=== PATIENT | female | born 1985 | race Caucasian/White ===

== ENCOUNTER 2017-07-25 19:22 | Emergency (ER) | payer MEDICAID, OTHER ==
[2017-07-25] MEDS ORDERED: Ativan 2 MG/1 ML VIAL IV ONE (19:50)
[2017-07-25] MEDS ORDERED: BABY ASPIRIN 81 MG CHEW PO ONE (19:50)
[2017-07-25] MEDS ORDERED: BABY ASPIRIN 81 MG CHEW ONE (19:59)
[2017-07-25] MEDS ORDERED: Ativan 2 MG/1 ML VIAL ONE (20:00)
--- NOTE | 2017-07-25 20:08 | ERPHSYRPT ---
- History of Present Illness Time Seen by Provider: 07/25/17 19:45 Historian: patient Exam Limitations: no limitations Patient Subjective Stated Complaint: Chest Pain Triage Nursing Assessment: Pt presents to the ED with complaints of chest pain x1 week. Pt states no new or worsening symptoms since onset but states "I feel I 'm doing worse damage by not getting it checked." Pt denies trauma to chest, drug or alcohol use. Pt denies other complaints, pt denies radiation of pain. A& O x4. Physician History: Pt has been c/o constant sternal chest pressure for 5 days, denies injury, no productive cough, vomiting, or fever, other complaints. She smokes, denies cardiac history or significant family history of heart disease. Timing/Duration: day(s) (5), constant, gradual onset Activities at Onset: none Quality: pressure Location: central Chest Pain Radiation: no radiation Severity of Pain-Max: severe Severity of Pain-Current: severe Modifying Factors: Improves With: nothing Associated Symptoms: nausea Nitro Today/Relief: no nitro taken today Aspirin Treatment Today: no aspirin today Allergies/Adverse Reactions: No Known Drug Allergies Allergy (Unverified 11/15/15 10:17) Home Medications: Alprazolam [Xanax 0.5 mg] 0.5 mg PO TIDPRN 10/19/15 [History] Aripiprazole [Abilify] 2 mg PO DAILY 10/19/15 [History] Atenolol 50 mg [Tenormin 50 mg] 25 mg PO DAILY 10/19/15 [History] Biotin 5 mg PO DAILY 10/19/15 [History] Cetirizine HCl [Zyrtec] 10 mg PO DAILY 10/19/15 [History] Diclofenac Potassium [Zipsor] 25 mg PO QIDPRN PRN 10/19/15 [History] Doxepin HCl 50 mg PO HS 10/19/15 [History] Escitalopram Oxalate [Lexapro] 30 mg PO DAILY 10/19/15 [History] Famotidine [Pepcid] 40 mg PO DAILY 10/19/15 [History] Itraconazole 100 mg PO BIDPRN PRN 10/19/15 [History] Levothyroxine Sodium 50 Mcg [Synthroid 50 Mcg] 50 mcg PO DAILY 10/19/15 [ History] Metformin HCl 500 mg [Glucophage 500 MG] 500 mg PO HS 10/19/15 [History] Omeprazole 20 MG [Prilosec 20 mg] 40 mg PO DAILY 10/19/15 [History] Hydrocodone Bit/Acetaminophen [Pingree 5-325 Tablet] 1 each PO Q6HPRN PRN [History] Cyclobenzaprine HCl [Flexeril] 5 - 10 mg PO BID 10/15/16 [History] Phentermine HCl [Adipex-P] 37.5 mg PO DAILY 10/15/16 [History] Hx Tetanus, Diphtheria Vaccination/Date Given: No Hx Influenza Vaccination/Date Given: No Hx Pneumococcal Vaccination/Date Given: No Immunizations Up to Date: No - Review of Systems Constitutional: No Symptoms Cardiac: Chest Pain Abdominal/Gastrointestinal: Nausea All Other Systems: Reviewed and Negative - Past Medical History Pertinent Past Medical History: No Neurological History: No Pertinent History Cardiac History: No Pertinent History Respiratory History: No Pertinent History Endocrine Medical History: Hypothyroidism Musculoskeletal History: Osteoarthritis 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 - Past Surgical History Past Surgical History: No - Social History Smoking Status: Current every day smoker How long have you smoked: 20 years Exposure to second hand smoke: Yes Drug Use: none Patient Lives Alone: No - Female History Hx Now: No - Nursing Vital Signs Nursing Vital Signs: Initial Vital Signs Temperature 98.6 F 07/25/17 19:35 Pulse Rate 125 H 07/25/17 19:35 Respiratory Rate 22 07/25/17 19:35 Blood Pressure 139/100 07/25/17 19:35 O2 Sat by Pulse Oximetry 97 07/25/17 19:35 Pain Scale Pain Intensity 7 - Physical Exam General Appearance: no apparent distress Eye Exam: PERRL/EOMI Ears, Nose, Throat Exam: normal ENT inspection, pharynx normal Neck Exam: normal inspection, non-tender, supple, No JVD Respiratory Exam: normal breath sounds, lungs clear, airway intact, No chest tenderness, No respiratory distress Cardiovascular Exam: normal heart sounds, normal peripheral pulses, tachycardia , No murmur, No gallop Gastrointestinal/Abdomen Exam: soft, normal bowel sounds Back Exam: normal inspection Extremity Exam: normal inspection, No calf tenderness Neurologic Exam: alert, oriented x 3, normal mood/affect Skin Exam: normal color, warm, dry, No rash Lymphatic Exam: adenopathy SpO2 Interpretation: normal SpO2: 97 Oxygen Delivery: Room Air - Course Nursing assessment & vital signs reviewed: Yes EKG Interpreted by Me: Sinus Tach, NORMAL AXIS, Non-specific ST Changes - Radiology Exams Chest X-ray Interpretation: Interpreted by me, Negative - CT Exams Chest CT Interpretation: Negative, No PE Ordered Tests: Active Orders 24 hr Category Date Time Status Mounter Automatic STAT Care 07/25/17 19:51 Active EKG-ER Only STAT Care 07/25/17 19:50 Active EKG-ER Only STAT Care 07/26/17 00:12 Active IV Insertion STAT Care 07/25/17 19:50 Active Oxygen-ED Only NASAL CANNULA 2 lpm Care 07/25/17 19:50 Active CHEST 2 VIEWS (PA AND LAT) Stat Exams 07/25/17 19:51 Taken CHEST WITH CONTRAST [CT] Stat Exams 07/25/17 21:15 Taken CBC W DIFF Stat Lab 07/25/17 20:00 Completed CK-Creatinine Phosphokinase Stat Lab 07/25/17 20:00 Completed CMP Stat Lab 07/25/17 20:00 Completed D-DIMER QUANTITATION Stat Lab 07/25/17 20:00 Completed HCG,QUALITATIVE URINE Stat Lab 07/25/17 19:50 Ordered LIPASE Stat Lab 07/25/17 20:00 Completed MAGNESIUM Stat Lab 07/25/17 20:00 Completed NT PRO BNP Stat Lab 07/25/17 20:00 Completed TROPONIN Q3H Lab 07/25/17 20:00 Completed TROPONIN Q3H Lab 07/25/17 23:00 Completed TROPONIN Q3H Lab 07/26/17 02:00 Ordered TROPONIN Q3H Lab 07/26/17 05:00 Ordered TROPONIN Q3H Lab 07/26/17 08:00 Ordered TSH [TSH, 3RD Generation] Stat Lab 07/25/17 20:51 Completed Urine Triage Profile Stat Lab 07/25/17 19:50 Ordered Medication Summary Discontinued Medications Generic Name Dose Route Start Last Admin Trade Name Freq PRN Reason Stop Dose Admin Aspirin 324 mg 07/25/17 19:50 07/25/17 20:03 Baby Aspirin 81 Mg Chew PO 07/25/17 19:51 324 mg STAT ONE Administration Aspirin Confirm 07/25/17 19:59 Baby Aspirin 81 Mg Chew Administered 07/25/17 20:00 Dose 324 mg .ROUTE .STK-MED ONE Sodium Chloride 1,000 mls @ 999 mls/hr 07/25/17 20:42 07/25/17 20:45 Sodium Chloride 0.9% 1000 Ml IV 07/25/17 21:42 999 mls/hr .Q1H1M STA Administration Sodium Chloride Confirm 07/25/17 20:44 Sodium Chloride 0.9% 1000 Ml Administered 07/25/17 20:45 Dose 1,000 mls @ ud .ROUTE .STK-MED ONE Lorazepam 1 mg 07/25/17 19:50 07/25/17 20:03 Ativan 2 Mg/1 Ml Vial IV 07/25/17 19:51 1 mg STAT ONE Administration Lorazepam Confirm 07/25/17 20:00 Ativan 2 Mg/1 Ml Vial Administered 07/25/17 20:01 Dose 2 mg .ROUTE .STK-MED ONE Lab/Rad Data: Laboratory Result Diagrams 07/25/17 20:00 07/25/17 20:00 Laboratory Results 07/25/17 07/25/17 07/25/17 Range/Units 23:00 20:51 20:00 WBC (4.0-10.5) K/mm3 RBC (4.1-5.4) M/mm3 Hgb (12.0-16.0) gm/dl Hct (35-47) % MCV (78-100) fl MCH (26-32) pg MCHC (32-36) g/dl RDW (11.5-14.0) % Plt Count (150-450) K/mm3 MPV (6-9.5) fl Gran % (36.0-66.0) % Lymphocytes % (24.0-44.0) % Monocytes % (0.0-12.0) % Eosinophils % (0.00-5.0) % Basophils % (0.0-0.4) % Basophils # (0-0.4) D-Dimer (0-500) ng/mL Sodium (136-145) mEq/L Potassium (3.5-5.1) mEq/L Chloride (98-107) mEq/L Carbon Dioxide (21-32) mEq/L Anion Gap (5-15) MEQ/L BUN (9-20) mg/dL Creatinine (0.55-1.30) mg/dl Estimated GFR ML/MIN Glucose (70-110) MG/DL Calcium (8.5-10.1) mg/dL Magnesium (1.8-2.4) mg/dL Total Bilirubin (0.2-1.0) mg/dL AST (15-37) U/L ALT (12-78) U/L Alkaline Phosphatase (46-116) U/L Creatine Kinase (26-192) U/L Troponin I < 0.017 < 0.017 (0.000-0.056) ng/ml NT-Pro-B Natriuret Pep (0-125) pg/ml Serum Total Protein (6.4-8.2) gm/dL Albumin (3.4-5.0) g/dL Lipase (73-393) U/L TSH 3rd Generation 5.887 H (0.358-3.740) mIU/L 07/25/17 07/25/17 07/25/17 Range/Units 20:00 20:00 20:00 WBC 10.4 (4.0-10.5) K/mm3 RBC 4.76 (4.1-5.4) M/mm3 Hgb 13.7 (12.0-16.0) gm/dl Hct 41.1 (35-47) % MCV 86.3 (78-100) fl MCH 28.8 (26-32) pg MCHC 33.3 (32-36) g/dl RDW 14.0 (11.5-14.0) % Plt Count 348 (150-450) K/mm3 MPV 8.8 (6-9.5) fl Gran % 58.6 (36.0-66.0) % Lymphocytes % 31.7 (24.0-44.0) % Monocytes % 7.3 (0.0-12.0) % Eosinophils % 2.2 (0.00-5.0) % Basophils % 0.2 (0.0-0.4) % Basophils # 0.02 (0-0.4) D-Dimer 831.79 H* (0-500) ng/mL Sodium 137 (136-145) mEq/L Potassium 3.6 (3.5-5.1) mEq/L Chloride 102 (98-107) mEq/L Carbon Dioxide 23.5 (21-32) mEq/L Anion Gap 14.9 (5-15) MEQ/L BUN 9 (9-20) mg/dL Creatinine 0.78 (0.55-1.30) mg/dl Estimated GFR > 60 ML/MIN Glucose 115 H (70-110) MG/DL Calcium 9.0 (8.5-10.1) mg/dL Magnesium 1.8 (1.8-2.4) mg/dL Total Bilirubin 0.10 L (0.2-1.0) mg/dL AST 20 (15-37) U/L ALT 31 (12-78) U/L Alkaline Phosphatase 111 (46-116) U/L Creatine Kinase 49 (26-192) U/L Troponin I (0.000-0.056) ng/ml NT-Pro-B Natriuret Pep 7 (0-125) pg/ml Serum Total Protein 7.5 (6.4-8.2) gm/dL Albumin 3.5 (3.4-5.0) g/dL Lipase 135 (73-393) U/L TSH 3rd Generation (0.358-3.740) mIU/L - Progress Progress: improved Air Movement: fair Progress Note: 07/26/17 00:13 Pt is asleep, denies pain or SOB, afebrile, stable. CT chest negative, as well as repeat Ekg and troponin. She was informed about the results, suggesting close follow up with her physician next week, all questions answered, she will be discharged in good condition. - Departure Time of Disposition: 00:15 Departure Disposition: Home Clinical Impression: Chest pain Qualifiers: Chest pain type: unspecified Qualified Code(s): R07.9 - Chest pain, unspecified Condition: Stable Critical Care Time: No Referrals: SHO ZUNIGA MD [Primary Care Provider] - Instructions: Atypical Chest Pain Additional Instructions: Rest x 1-2 days, return if severe shortness of breath, chest pain, vomiting, fever> 102 F!
[2017-07-25 20:10] LABS: BASOPHIL % 0.2 % (0.0-0.4); Basophil (Absolute #) 0.02 (0-0.4); Eosinophil % 2.2 % (0.00-5.0); Eosinophil (Absolute #) 0.23 (0-0.5); Granulocyte Absolute (ANC) 6.12 (1.4-6.9); Granulocytes % 58.6 % (36.0-66.0); Hematocrit 41.1 % (35-47); Hemoglobin 13.7 gm/dl (12.0-16.0); Lymphocyte (Absolute #) 3.31 (1.0-4.6); Lymphocytes % 31.7 % (24.0-44.0); Mean Cell Volume 86.3 fl (78-100); Mean Corpuscular Hemoglobin 28.8 pg (26-32); Mean Corpuscular Hgb Concent. 33.3 g/dl (32-36); Mean Platelet Volume 8.8 fl (6-9.5); Monocyte (Absolute #) 0.76 (0.0-1.3); Monocytes % 7.3 % (0.0-12.0); Platelet Count 348 K/mm3 (150-450); Red Blood Count 4.76 M/mm3 (4.1-5.4); White Blood Count 10.4 K/mm3 (4.0-10.5)
[2017-07-25 20:14] VITALS: BP 115/85
[2017-07-25] MEDS ORDERED: Sodium Chloride 0.9% 1000 ML 1,000 ML IV STA (20:42)
[2017-07-25] MEDS ORDERED: Sodium Chloride 0.9% 1000 ML 1,000 ML ONE (20:44)
[2017-07-25 20:45] LABS: ALBUMIN 3.5 g/dL (3.4-5.0); ALKALINE PHOSPHATASE 111 U/L (46-116); ANION GAP 14.9 MEQ/L (5-15); BLOOD UREA NITROGEN 9 mg/dL (9-20); CHLORIDE 102 mEq/L (98-107); CK-Creatinine Phosphokinase 49 U/L (26-192); Carbon Dioxide 23.5 mEq/L (21-32); Creatinine 1 0.78 mg/dl (0.55-1.30); EST GLOMERULAR FILTRATION RATE > 60 ML/MIN; Glucose 115 MG/DL (70-110); LIPASE 135 U/L (73-393); MAGNESIUM 1.8 mg/dL (1.8-2.4); NT PRO BNP 7 pg/ml (0-125); Potassium 3.6 mEq/L (3.5-5.1); SGOT/AST 20 U/L (15-37); SGPT/ALT 31 U/L (12-78); SODIUM 137 mEq/L (136-145); Total Protein 7.5 gm/dL (6.4-8.2)
[2017-07-25 20:51] VITALS: O2SAT 97
[2017-07-25 23:51] VITALS: PULSE 101
--- NOTE | 2017-07-26 08:48 | XRAY ---
Indication: Chest pain and palpitations. Multiple contiguous axial images obtained through the chest using 80 cc Isovue 370 contrast and PE protocol. Comparison: None There is good opacification of the pulmonary arteries including the lobar and segmental branches. No filling defect or pulmonary embolus. Heart is not enlarged. Aorta is normal in course and caliber. No pathologic mediastinal/hilar lymphadenopathy. Examination of the lung parenchyma demonstrates a few tiny right lung calcified granulomas and minimal bilateral dependent atelectasis. No suspicious pulmonary mass, infiltrate, or effusion. Bony thorax intact. Limited upper abdomen unremarkable. Impression: Negative pulmonary embolus. No acute cardiopulmonary abnormalities. Incidental evidence for old granulomatous disease. CT DI 13.67
--- NOTE | 2017-07-26 09:03 | XRAY ---
Indication: Chest pain 1 week. Comparison: None PA/lateral chest demonstrates normal heart, lungs, and bony thorax.
== END 2017-07-26 00:24 | disposition home or self-care (01) ==
LOC: ED 19:22
DX: R07.89 Other chest pain (principal); Z72.0 Tobacco use; E03.9 Hypothyroidism, unspecified; M19.90 Unspecified osteoarthritis, unspecified site; Z79.899 Other long term (current) drug therapy
CPT/HCPCS: 36000; 36415; 71046; 71260; 80053; 82550; 83690; 83735; 83880; 84443; 84484; 85025; 85379; 93005; 93041; 96360; 96374; 99284; J2060; A9270-GY

== ENCOUNTER 2017-12-11 13:18 | Emergency (ER) | payer OTHER ==
[2017-12-11] MEDS ORDERED: BABY ASPIRIN 81 MG CHEW PO ONE (13:58)
--- NOTE | 2017-12-11 14:00 | ERPHSYRPT ---
- History of Present Illness Time Seen by Provider: 12/11/17 13:58 Historian: patient Patient Subjective Stated Complaint: SOb and Chest Pain x1 week Triage Nursing Assessment: Pt presents to the ED with complaints of intermittent chest pain and SOB. Pt states hx of complaint. Pt states she has been diagnosed with anxiety in the past but sates "I don't think that what this is." Pt states pain is worse with movement. No distress noted, skin PWD. A&O x4. Physician History: The patient is a 32-year-old female with her fianc complaining of a recurrence of her left-sided chest pain for the past week. Several months ago she had the same type of chest pain that lasted one month and suddenly resolved. The first time she had the chest pain she was seen and evaluated but nothing was found. For the past week she claims to have left-sided chest pain that worsens with breathing and movement. She describes it as a semitruck parked on her chest plus someone stabbing her in the heart. The patient is very dramatic in her descriptions of her ailment. She claims she is short of breath. She has no nausea. She has not taken any medicines other than those that have been prescribed for her for her other medical problems. She states she did not want to come back in because the last time she felt belittled. Her past medical history is significant for chest pain, hypertension, GERD, bipolar, OCD, and "joint pain". Timing/Duration: week(s) (1), constant, sudden Activities at Onset: none Quality: pressure, stabbing Location: substernal Chest Pain Radiation: no radiation Severity of Pain-Max: severe Severity of Pain-Current: severe Modifying Factors: Improves With: breathing, movement Associated Symptoms: shortness of breath, hurts to breathe, No edema Prior Chest Pain/Cardiac Workup: recently seen/treated Nitro Today/Relief: no nitro taken today Aspirin Treatment Today: 81 mg x 4, provided by ED Allergies/Adverse Reactions: No Known Drug Allergies Allergy (Verified 12/11/17 13:34) Home Medications: Aripiprazole [Abilify] 2 mg PO DAILY 10/19/15 [History] Atenolol 50 mg [Tenormin 50 mg] 25 mg PO DAILY 10/19/15 [History] Cetirizine HCl [Zyrtec] 10 mg PO DAILY 10/19/15 [History] Diclofenac Potassium [Zipsor] 25 mg PO QIDPRN PRN 10/19/15 [History] Doxepin HCl 50 mg PO HS 10/19/15 [History] Escitalopram Oxalate [Lexapro] 30 mg PO DAILY 10/19/15 [History] Omeprazole 20 MG [Prilosec 20 mg] 40 mg PO DAILY 10/19/15 [History] Cyclobenzaprine HCl [Flexeril] 5 - 10 mg PO BID 10/15/16 [History] Hx Tetanus, Diphtheria Vaccination/Date Given: No Hx Influenza Vaccination/Date Given: No Hx Pneumococcal Vaccination/Date Given: No Immunizations Up to Date: No - Review of Systems Constitutional: No Fever, No Chills Eyes: No Symptoms Ears, Nose, & Throat: No Symptoms Respiratory: Dyspnea Cardiac: Chest Pain Abdominal/Gastrointestinal: No Abdominal Pain, No Nausea, No Vomiting, No Diarrhea Genitourinary Symptoms: No Dysuria Musculoskeletal: No Back Pain, No Neck Pain Skin: No Rash Neurological: No Dizziness, No Focal Weakness, No Sensory Changes Psychological: No Symptoms Endocrine: No Symptoms Hematologic/Lymphatic: No Symptoms Immunological/Allergic: No Symptoms All Other Systems: Reviewed and Negative - Past Medical History Pertinent Past Medical History: No Neurological History: No Pertinent History Cardiac History: No Pertinent History Respiratory History: No Pertinent History Endocrine Medical History: Hypothyroidism Musculoskeletal History: Osteoarthritis 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 - Past Surgical History Past Surgical History: No - Social History Smoking Status: Current every day smoker How long have you smoked: 20 years Exposure to second hand smoke: Yes Drug Use: none Patient Lives Alone: No - Female History Hx Now: No - Nursing Vital Signs Nursing Vital Signs: Initial Vital Signs Temperature 98.0 F 12/11/17 13:25 Pulse Rate 108 H 12/11/17 13:25 Respiratory Rate 27 H 12/11/17 13:25 Blood Pressure 129/84 12/11/17 13:25 O2 Sat by Pulse Oximetry 100 12/11/17 13:25 Pain Scale Pain Intensity 4 - Physical Exam General Appearance: no apparent distress, alert Eye Exam: PERRL/EOMI, eyes nml inspection Ears, Nose, Throat Exam: normal ENT inspection, moist mucous membranes Neck Exam: normal inspection Respiratory Exam: chest tenderness (tenderness to mild palpation to anterior chest) Cardiovascular Exam: regular rate/rhythm, normal heart sounds, No edema Gastrointestinal/Abdomen Exam: soft, No tenderness, No mass Pelvic Exam: not done Rectal Exam: not done Back Exam: normal inspection, No CVA tenderness, No vertebral tenderness Extremity Exam: normal inspection, normal range of motion Neurologic Exam: alert, oriented x 3, cooperative, normal mood/affect, sensation nml, No motor deficits Skin Exam: normal color, warm, dry SpO2 Interpretation: normal SpO2: 100 Oxygen Delivery: Room Air - Course EKG Interpreted by Me: RATE, Sinus Rhythm, NORMAL AXIS, NORMAL INTERVALS, NORMAL QRS, NORMAL ST-T - Radiology Exams Chest X-ray Interpretation: Teleradiologist Report, Negative (per Dr Cleary) - CT Exams Chest CT Interpretation: Negative, Tele-radiologist Report, No PE (Per Dr Cleary) Ordered Tests: Active Orders 24 hr Category Date Time Status Solar Sales Consultant STAT Care 12/11/17 14:00 Active EKG-ER Only STAT Care 12/11/17 13:58 Active IV Insertion STAT Care 12/11/17 13:58 Active Pulse Oximetry (ED) STAT Care 12/11/17 13:58 Active CHEST 2 VIEWS (PA AND LAT) Stat Exams 12/11/17 13:59 Completed CHEST WITH CONTRAST [CT] Stat Exams 12/11/17 14:56 Completed CBC W DIFF Stat Lab 12/11/17 13:45 Completed CMP Stat Lab 12/11/17 13:45 Completed D-DIMER QUANTITATION Stat Lab 12/11/17 13:45 Completed NT PRO BNP Stat Lab 12/11/17 13:45 Completed TROPONIN Q3H Lab 12/11/17 13:45 Completed TROPONIN Q3H Lab 12/11/17 20:00 Ordered TROPONIN Q3H Lab 12/11/17 23:00 Ordered TROPONIN Q3H Lab 12/12/17 02:00 Ordered UA W/RFX UR CULTURE Stat Lab 12/11/17 14:31 Completed Urine Triage Profile Stat Lab 12/11/17 14:31 Completed Medication Summary Discontinued Medications Generic Name Dose Route Start Last Admin Trade Name Freq PRN Reason Stop Dose Admin Aspirin 324 mg 12/11/17 13:58 12/11/17 14:06 Baby Aspirin 81 Mg Chew PO 12/11/17 13:59 324 mg STAT ONE Administration Aspirin Confirm 12/11/17 14:05 Baby Aspirin 81 Mg Chew Administered 12/11/17 14:06 Dose 81 mg .ROUTE .STK-MED ONE Lab/Rad Data: Laboratory Result Diagrams 12/11/17 13:45 12/11/17 13:45 Laboratory Results 12/11/17 12/11/17 12/11/17 Range/Units 14:31 14:31 13:45 WBC (4.0-10.5) K/mm3 RBC (4.1-5.4) M/mm3 Hgb (12.0-16.0) gm/dl Hct (35-47) % MCV (78-100) fl MCH (26-32) pg MCHC (32-36) g/dl RDW (11.5-14.0) % Plt Count (150-450) K/mm3 MPV (6-9.5) fl Gran % (36.0-66.0) % Eos # (Auto) (0-0.5) Absolute Lymphs (auto) (1.0-4.6) Absolute Monos (auto) (0.0-1.3) Lymphocytes % (24.0-44.0) % Monocytes % (0.0-12.0) % Eosinophils % (0.00-5.0) % Basophils % (0.0-0.4) % Absolute Granulocytes (1.4-6.9) Basophils # (0-0.4) D-Dimer (215-500) ng/mL Sodium (137-145) mmol/L Potassium (3.5-5.1) mmol/L Chloride (98-107) mmol/L Carbon Dioxide (22-30) mmol/L Anion Gap (5-15) MEQ/L BUN (7-17) mg/dL Creatinine (0.52-1.04) mg/dL Estimated GFR ML/MIN Glucose (74-106) mg/dL Calcium (8.4-10.2) mg/dL Total Bilirubin (0.2-1.3) mg/dL AST (14-36) U/L ALT (0-35) U/L Alkaline Phosphatase (38-126) U/L Troponin I < 0.012 (0.000-0.034) ng/mL NT-Pro-B Natriuret Pep (0-450) pg/mL Serum Total Protein (6.3-8.2) g/dL Albumin (3.5-5.0) g/dL Ur Collection Type CLEAN CATCH Urine Color YELLOW (YELLOW) Urine Appearance HAZY (CLEAR) Urine pH 8.0 (5-6) Ur Specific [place] 1.005 (1.005-1.025) Urine Protein NEGATIVE (Negative) Urine Ketones NEGATIVE (NEGATIVE) Urine Blood NEGATIVE (0-5) Shan/ul Urine Nitrite NEGATIVE (NEGATIVE) Urine Bilirubin NEGATIVE (NEGATIVE) Urine Urobilinogen NORMAL (0-1) mg/dL Ur Leukocyte Esterase NEGATIVE (NEGATIVE) Urine Culture Reflexed NO (NO) Urine Glucose NEGATIVE (NEGATIVE) mg/dL Urine Opiates Level NEGATIVE (NEGATIVE) Ur Methadone NEGATIVE (NEGATIVE) Urine Barbiturates NEGATIVE (NEGATIVE) Ur Phencyclidine (PCP) NEGATIVE (NEGATIVE) Urine Amphetamine POSITIVE (NEGATIVE) U Benzodiazepine Level NEGATIVE (NEGATIVE) Urine Cocaine NEGATIVE (NEGATIVE) Urine Marijuana (THC) NEGATIVE (NEGATIVE) Specimen Received 12-11-17 1431 12/11/17 12/11/17 12/11/17 Range/Units 13:45 13:45 13:45 WBC 9.6 (4.0-10.5) K/mm3 RBC 4.98 (4.1-5.4) M/mm3 Hgb 14.8 (12.0-16.0) gm/dl Hct 41.8 (35-47) % MCV 83.9 (78-100) fl MCH 29.7 (26-32) pg MCHC 35.4 (32-36) g/dl RDW 13.6 (11.5-14.0) % Plt Count 373 (150-450) K/mm3 MPV 9.0 (6-9.5) fl Gran % 46.1 (36.0-66.0) % Eos # (Auto) 0.21 (0-0.5) Absolute Lymphs (auto) 4.31 (1.0-4.6) Absolute Monos (auto) 0.60 (0.0-1.3) Lymphocytes % 45.1 H (24.0-44.0) % Monocytes % 6.3 (0.0-12.0) % Eosinophils % 2.2 (0.00-5.0) % Basophils % 0.3 (0.0-0.4) % Absolute Granulocytes 4.41 (1.4-6.9) Basophils # 0.03 (0-0.4) D-Dimer 1162 H* (215-500) ng/mL Sodium 141 (137-145) mmol/L Potassium 3.5 (3.5-5.1) mmol/L Chloride 107 (98-107) mmol/L Carbon Dioxide 19 L (22-30) mmol/L Anion Gap 18.6 H (5-15) MEQ/L BUN 11 (7-17) mg/dL Creatinine 0.68 (0.52-1.04) mg/dL Estimated GFR > 60.0 ML/MIN Glucose 100 (74-106) mg/dL Calcium 10.1 (8.4-10.2) mg/dL Total Bilirubin 0.30 (0.2-1.3) mg/dL AST 20 (14-36) U/L ALT 24 (0-35) U/L Alkaline Phosphatase 126 (38-126) U/L Troponin I (0.000-0.034) ng/mL NT-Pro-B Natriuret Pep 23.5 (0-450) pg/mL Serum Total Protein 8.5 H (6.3-8.2) g/dL Albumin 5.0 (3.5-5.0) g/dL Ur Collection Type Urine Color (YELLOW) Urine Appearance (CLEAR) Urine pH (5-6) Ur Specific [place] (1.005-1.025) Urine Protein (Negative) Urine Ketones (NEGATIVE) Urine Blood (0-5) Shan/ul Urine Nitrite (NEGATIVE) Urine Bilirubin (NEGATIVE) Urine Urobilinogen (0-1) mg/dL Ur Leukocyte Esterase (NEGATIVE) Urine Culture Reflexed (NO) Urine Glucose (NEGATIVE) mg/dL Urine Opiates Level (NEGATIVE) Ur Methadone (NEGATIVE) Urine Barbiturates (NEGATIVE) Ur Phencyclidine (PCP) (NEGATIVE) Urine Amphetamine (NEGATIVE) U Benzodiazepine Level (NEGATIVE) Urine Cocaine (NEGATIVE) Urine Marijuana (THC) (NEGATIVE) Specimen Received - Departure Time of Disposition: 17:11 Departure Disposition: Home Clinical Impression: Methamphetamine abuse, Chest pain Condition: Stable Critical Care Time: No Referrals: SHO ZUNIGA MD [Primary Care Provider] - Additional Instructions: You have chest pain. You also tested positive for methamphetamine. Your laboratory results did not show any sign of heart problems. Your white count and your electrolytes were perfectly normal. Your troponin was normal. Your d- dimer was elevated so we did a CT scan of your chest to look for a pulmonary embolism. There was no pulmonary embolism found on the CT scan. Take Tylenol 1000 mg and ibuprofen 800 mg every 8 hours as needed for pain. Follow-up with your primary medical doctor in one to 2 days.
[2017-12-11] MEDS ORDERED: BABY ASPIRIN 81 MG CHEW ONE (14:05)
[2017-12-11 14:11] LABS: BASOPHIL % 0.3 % (0.0-0.4); Basophil (Absolute #) 0.03 (0-0.4); Eosinophil % 2.2 % (0.00-5.0); Eosinophil (Absolute #) 0.21 (0-0.5); Granulocyte Absolute (ANC) 4.41 (1.4-6.9); Granulocytes % 46.1 % (36.0-66.0); Hematocrit 41.8 % (35-47); Hemoglobin 14.8 gm/dl (12.0-16.0); Lymphocyte (Absolute #) 4.31 (1.0-4.6); Lymphocytes % 45.1 % (24.0-44.0); Mean Cell Volume 83.9 fl (78-100); Mean Corpuscular Hemoglobin 29.7 pg (26-32); Mean Corpuscular Hgb Concent. 35.4 g/dl (32-36); Monocytes % 6.3 % (0.0-12.0); Platelet Count 373 K/mm3 (150-450); Red Blood Count 4.98 M/mm3 (4.1-5.4); Red Cell Distribution Width 13.6 % (11.5-14.0); White Blood Count 9.6 K/mm3 (4.0-10.5)
[2017-12-11 14:42] LABS: ALKALINE PHOSPHATASE 126 U/L (38-126); ANION GAP 18.6 MEQ/L (5-15); BLOOD UREA NITROGEN 11 mg/dL (7-17); CHLORIDE 107 mmol/L (98-107); Calcium 10.1 mg/dL (8.4-10.2); Carbon Dioxide 19 mmol/L (22-30); Creatinine 1 0.68 mg/dL (0.52-1.04); Glucose 100 mg/dL (74-106); Potassium 3.5 mmol/L (3.5-5.1); SGOT/AST 20 U/L (14-36); SGPT/ALT 24 U/L (0-35); SODIUM 141 mmol/L (137-145); Total Protein 8.5 g/dL (6.3-8.2)
[2017-12-11 14:47] LABS: Appearance HAZY (CLEAR); Bilirubin NEGATIVE (NEGATIVE); Blood NEGATIVE Ery/ul (0-5); Glucose NEGATIVE (NEGATIVE); Ketones NEGATIVE (NEGATIVE); Leukocyte Esterase NEGATIVE (NEGATIVE); Nitrite NEGATIVE (NEGATIVE); Protein,Urine Dip NEGATIVE (Negative); Specific Gravity 1.005 (1.005-1.025); Urobilinogen NORMAL mg/dL (0-1)
--- NOTE | 2017-12-11 14:48 | XRAY ---
Exam: Two-view chest from 12/11/2017. Comparison: Two-view chest from 07/25/2017. Indication: Chest pain. Findings: Upright PA and lateral chest films are submitted for evaluation. EKG leads are seen in place. The lungs are well expanded. The heart size and contour are normal. The papo and mediastinal structures appear unremarkable. Pulmonary vascularity is within normal limits. No infiltrates, pneumothorax, or pleural fluid is seen. No acute osseous abnormalities are seen. There is slight convexity of the lower thoracic spine toward the right centered at T11 representing no change. Impression: 1. No acute cardiopulmonary disease is seen. The findings are unchanged from 07/25/2017.
[2017-12-11 14:49] LABS: NT PRO BNP 23.5 pg/mL (0-450)
[2017-12-11 15:06] LABS: Amphetamine,Urine POSITIVE (NEGATIVE); Benzodiazepine,Urine NEGATIVE (NEGATIVE); Cocaine,Urine NEGATIVE (NEGATIVE); Opiate,Urine NEGATIVE (NEGATIVE); PCP,Urine NEGATIVE (NEGATIVE); THC,Urine NEGATIVE (NEGATIVE)
[2017-12-11 15:11] LABS: Barbiturate,Urine NEGATIVE (NEGATIVE)
[2017-12-11 15:40] LABS: Methadone,Urine NEGATIVE (NEGATIVE)
--- NOTE | 2017-12-11 16:27 | XRAY ---
Exam: CT of the chest with IV contrast per PE protocol from 12/11/2017. CTDI: 16.67 Comparison: CT of the chest with IV contrast per PE protocol from 07/25/2017. Indication: Shortness of breath for one week, elevated d-dimer (1162). Technique: Post-IV contrast axial images were obtained through the chest using the PE protocol during and following automated injection of 100 cc of Isovue-370 contrast material. MIP coronal and reconstructed sagittal images were generated and reviewed. Findings: I see no definite filling defects within the main pulmonary artery trunk, right or left main pulmonary arteries, or the proximal lobar and segmental artery segments to suggest pulmonary emboli. The heart size is normal without pericardial effusion. Minimal residual thymus tissue is seen within the prevascular space in this young adult. No abnormal mediastinal or perihilar lymphadenopathy is seen. The thoracic aorta is of normal diameter and reveals no evidence of aortic dissection or aneurysm. A subpleural calcified granuloma is seen at the anterior medial margin of the right lung apex and the anterior lateral margin of the right upper lung field. There is also a calcified granuloma within the medial aspect of the right upper lung field representing no change. I see no infiltrates, pneumothorax, or pleural fluid. No abnormal soft tissue lung nodularity is seen. The upper abdomen reveals no significant abnormality. The adrenal glands appear grossly unremarkable. The skeleton reveals no acute fracture or aggressive bone lesion. Impression: 1. No CT findings to suggest acute pulmonary embolism. 2. No other acute cardiopulmonary disease is seen. 3. Mild old healed granulomatous disease within the right lung, stable.
[2017-12-11 17:18] VITALS: BP 131/87; PULSE 100; O2SAT 98
== END 2017-12-11 17:26 | disposition home or self-care (01) ==
LOC: ED 13:18
DX: F15.10 Other stimulant abuse, uncomplicated (principal); R07.9 Chest pain, unspecified
CPT/HCPCS: 36000; 36415; 71046; 71260; 80053; 80307; 81002; 83880; 84484; 85025; 85379; 93005; 93041; 99284; A9270-GY

== ENCOUNTER 2018-06-04 07:26 | Emergency (ER) | payer OTHER ==
--- NOTE | 2018-06-04 07:53 | ERPHSYRPT ---
- History of Present Illness Time Seen by Provider: 06/04/18 07:40 Historian: patient Exam Limitations: no limitations Physician History: 33-year-old white female with history of degenerative disc disease in her neck , arthritis, hypothyroidism, high blood pressure, OCD, chronic joint pain with history of substance abuse. Patient arrives with complaint of pain in her epigastric region symptoms since this morning positive vomiting. Patient states that she has been seen in several ERs in the past with similar symptoms and states that she's been told that she has gallbladder problems. Patient also states that she's used amphetamines in the last few days. Past medical history includes degenerative disc disease in her neck, arthritis, hypothyroidism, high blood pressure, OCD Past surgical history includes hysterectomy. Social history includes tobacco use and amphetamine use. Timing/Duration: today Activities at Onset: none Quality: aching, cramping Abdominal Pain Onset Location: epigastric Pain Radiation: no radiation Severity of Pain-Max: moderate Severity of Pain-Current: moderate Modifying Factors: Improves With: nothing Associated Symptoms: No back, No chest pain, No diaphoresis, No diarrhea, No fever/chills, No fatigue, No headache, No loss of appetite, No nausea, No neck pain, No shortness of breath, No syncope, No vomiting, No weakness Previous symptoms: same symptoms as today Allergies/Adverse Reactions: No Known Drug Allergies Allergy (Verified 06/04/18 08:49) Home Medications: Aripiprazole [Abilify] 2 mg PO DAILY 10/19/15 [History] Atenolol 50 mg [Tenormin 50 mg] 25 mg PO DAILY 10/19/15 [History] Cetirizine HCl [Zyrtec] 10 mg PO DAILY 10/19/15 [History] Diclofenac Potassium [Zipsor] 25 mg PO QIDPRN PRN 10/19/15 [History] Doxepin HCl 50 mg PO HS 10/19/15 [History] Escitalopram Oxalate [Lexapro] 30 mg PO DAILY 10/19/15 [History] Omeprazole 20 MG [Prilosec 20 mg] 40 mg PO DAILY 10/19/15 [History] Cyclobenzaprine HCl [Flexeril] 5 - 10 mg PO BID 10/15/16 [History] Hx Tetanus, Diphtheria Vaccination/Date Given: No Hx Influenza Vaccination/Date Given: No Hx Pneumococcal Vaccination/Date Given: No - Review of Systems Constitutional: No Fever, No Chills Eyes: No Symptoms Ears, Nose, & Throat: No Symptoms Respiratory: No Cough, No Dyspnea Cardiac: No Chest Pain, No Edema, No Syncope Abdominal/Gastrointestinal: Abdominal Pain (epigastric abdominal pain), Nausea, No Vomiting, No Diarrhea, No Constipation, No Hematemesis, No Hematochezia, No Melena, No Dysphagia, No Appetite Changes Genitourinary Symptoms: No Dysuria Musculoskeletal: No Back Pain, No Neck Pain Skin: No Rash Neurological: No Dizziness, No Focal Weakness, No Sensory Changes Psychological: Drug Abuse (amphetamine use several days ago), No Alcohol Abuse Endocrine: No Symptoms All Other Systems: Reviewed and Negative - Past Medical History Pertinent Past Medical History: No Neurological History: No Pertinent History Cardiac History: No Pertinent History Respiratory History: No Pertinent History Endocrine Medical History: Hypothyroidism Musculoskeletal History: Osteoarthritis 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 - Past Surgical History Past Surgical History: No - Social History Smoking Status: Current every day smoker How long have you smoked: 20 years Exposure to second hand smoke: Yes Drug Use: none, methamphetamines Patient Lives Alone: No - Nursing Vital Signs Nursing Vital Signs: Initial Vital Signs Temperature 99 F 06/04/18 07:39 Pulse Rate 88 06/04/18 07:39 Respiratory Rate 18 06/04/18 07:39 Blood Pressure 116/79 06/04/18 07:39 O2 Sat by Pulse Oximetry 98 06/04/18 07:39 Pain Scale Pain Intensity 8 - Physical Exam General Appearance: other (Well-developed white female speaks in a drowning moaning voice) Eye Exam: PERRL/EOMI, eyes nml inspection Ears, Nose, Throat Exam: normal ENT inspection, pharynx normal, moist mucous membranes Neck Exam: normal inspection, non-tender, supple, full range of motion Respiratory Exam: normal breath sounds Cardiovascular Exam: regular rate/rhythm, normal heart sounds, normal peripheral pulses, capillary refill <2 sec, No murmur Gastrointestinal/Abdomen Exam: soft, normal bowel sounds, tenderness ( Epigastric tenderness), No distention, No mass, No guarding, No ecchymosis, No pulsatile mass, No rebound, No hernia, No hepatomegaly, No organomegaly, No splenomegaly Back Exam: normal inspection, normal range of motion, No CVA tenderness, No vertebral tenderness Extremity Exam: normal inspection, normal range of motion, pelvis stable Neurologic Exam: alert, oriented x 3, cooperative, bitumastic applier II-XII nml as tested, normal mood/affect, nml cerebellar function, sensation nml, No motor deficits Skin Exam: normal color, warm, dry SpO2 Interpretation: normal (99%) - Course Nursing assessment & vital signs reviewed: Yes EKG Interpreted by Me: RATE (73 bpm), Sinus Rhythm, NORMAL AXIS, Other (EKG: Sinus rhythm, 73 bpm, normal axis, no acute ST or T wave abnormalities, essentially normal EKG, compared to December 11, 2017) Ordered Tests: Active Orders 24 hr Category Date Time Status EKG-ER Only STAT Care 06/04/18 07:44 Active IV Insertion STAT Care 06/04/18 07:44 Active ACETAMINOPHEN Stat Lab 06/04/18 08:06 Completed AMYLASE Stat Lab 06/04/18 08:06 Completed CBC W DIFF Stat Lab 06/04/18 07:44 Completed CMP Stat Lab 06/04/18 08:06 Completed HCG QUALITATIVE,SERUM Stat Lab 06/04/18 08:06 Completed LIPASE Stat Lab 06/04/18 08:06 Completed SALICYLATE Stat Lab 06/04/18 08:06 Completed UA W/RFX UR CULTURE Stat Lab 06/04/18 08:59 Completed Urine Triage Profile Stat Lab 06/04/18 08:43 Completed Medication Summary Discontinued Medications Generic Name Dose Route Start Last Admin Trade Name Freq PRN Reason Stop Dose Admin Sodium Chloride 1,000 mls @ 999 mls/hr 06/04/18 07:44 06/04/18 08:06 Sodium Chloride 0.9% 1000 Ml IV 06/04/18 08:44 999 mls/hr .Q1H1M STA Administration Sodium Chloride Confirm 06/04/18 08:02 Sodium Chloride 0.9% 1000 Ml Administered 06/04/18 08:03 Dose 1,000 mls @ ud .ROUTE .STK-MED ONE Promethazine HCl 12.5 mg 06/04/18 07:44 06/04/18 08:06 Phenergan 25 Mg Inj IV 06/04/18 07:45 12.5 mg STAT ONE Administration Promethazine HCl Confirm 06/04/18 08:03 Phenergan 25 Mg Inj Administered 06/04/18 08:04 Dose 25 mg .ROUTE .STK-MED ONE Lab/Rad Data: Laboratory Result Diagrams 06/04/18 07:44 06/04/18 08:06 Laboratory Results 06/04/18 06/04/18 06/04/18 Range/Units 08:59 08:43 08:06 WBC (4.0-10.5) K/mm3 RBC (4.1-5.4) M/mm3 Hgb (12.0-16.0) gm/dl Hct (35-47) % MCV (78-100) fl MCH (26-32) pg MCHC (32-36) g/dl RDW (11.5-14.0) % Plt Count (150-450) K/mm3 MPV (6-9.5) fl Gran % (36.0-66.0) % Eos # (Auto) (0-0.5) Absolute Lymphs (auto) (1.0-4.6) Absolute Monos (auto) (0.0-1.3) Lymphocytes % (24.0-44.0) % Monocytes % (0.0-12.0) % Eosinophils % (0.00-5.0) % Basophils % (0.0-0.4) % Absolute Granulocytes (1.4-6.9) Basophils # (0-0.4) Sodium (137-145) mmol/L Potassium (3.5-5.1) mmol/L Chloride (98-107) mmol/L Carbon Dioxide (22-30) mmol/L Anion Gap (5-15) MEQ/L BUN (7-17) mg/dL Creatinine (0.52-1.04) mg/dL Estimated GFR ML/MIN Glucose (74-106) mg/dL Calcium (8.4-10.2) mg/dL Total Bilirubin (0.2-1.3) mg/dL AST (14-36) U/L ALT (0-35) U/L Alkaline Phosphatase (38-126) U/L Serum Total Protein (6.3-8.2) g/dL Albumin (3.5-5.0) g/dL Amylase (30-110) U/L Lipase (23-300) U/L Serum , Qual (Negative) Urine Color YELLOW (YELLOW) Urine Appearance CLOUDY (CLEAR) Urine pH 7.0 (5-6) Ur Specific [place] 1.017 (1.005-1.025) Urine Protein NEGATIVE (Negative) Urine Ketones NEGATIVE (NEGATIVE) Urine Blood NEGATIVE (0-5) Shan/ul Urine Nitrite NEGATIVE (NEGATIVE) Urine Bilirubin NEGATIVE (NEGATIVE) Urine Urobilinogen NEGATIVE (0-1) mg/dL Ur Leukocyte Esterase SMALL (NEGATIVE) Urine WBC (Auto) 0-2 (0-5) /HPF Urine RBC (Auto) 0-2 (0-2) /HPF U Epithel Cells (Auto) RARE (FEW) /HPF Urine Bacteria (Auto) RARE (NEGATIVE) /HPF Urine Mucus (Auto) SLIGHT (NEGATIVE) /HPF Urine Culture Reflexed NO (NO) Urine Glucose NEGATIVE (NEGATIVE) mg/dL Salicylates < 1.0 L (2-20) mg/dL Urine Opiates Level NEGATIVE (NEGATIVE) Ur Methadone NEGATIVE (NEGATIVE) Acetaminophen < 10 L (10-30) ug/ml Urine Barbiturates NEGATIVE (NEGATIVE) Ur Phencyclidine (PCP) NEGATIVE (NEGATIVE) Urine Amphetamine NEGATIVE (NEGATIVE) U Benzodiazepine Level NEGATIVE (NEGATIVE) Urine Cocaine NEGATIVE (NEGATIVE) Urine Marijuana (THC) NEGATIVE (NEGATIVE) 06/04/18 06/04/18 06/04/18 Range/Units 08:06 08:06 07:44 WBC 7.7 (4.0-10.5) K/mm3 RBC 4.75 (4.1-5.4) M/mm3 Hgb 14.2 (12.0-16.0) gm/dl Hct 41.4 (35-47) % MCV 87.2 (78-100) fl MCH 29.9 (26-32) pg MCHC 34.3 (32-36) g/dl RDW 12.9 (11.5-14.0) % Plt Count 344 (150-450) K/mm3 MPV 8.9 (6-9.5) fl Gran % 44.4 (36.0-66.0) % Eos # (Auto) 0.21 (0-0.5) Absolute Lymphs (auto) 3.48 (1.0-4.6) Absolute Monos (auto) 0.58 (0.0-1.3) Lymphocytes % 45.0 H (24.0-44.0) % Monocytes % 7.5 (0.0-12.0) % Eosinophils % 2.7 (0.00-5.0) % Basophils % 0.4 (0.0-0.4) % Absolute Granulocytes 3.43 (1.4-6.9) Basophils # 0.03 (0-0.4) Sodium 140 (137-145) mmol/L Potassium 3.9 (3.5-5.1) mmol/L Chloride 105 (98-107) mmol/L Carbon Dioxide 24 (22-30) mmol/L Anion Gap 15.9 H (5-15) MEQ/L BUN 16 (7-17) mg/dL Creatinine 0.51 L (0.52-1.04) mg/dL Estimated GFR > 60.0 ML/MIN Glucose 107 H (74-106) mg/dL Calcium 9.3 (8.4-10.2) mg/dL Total Bilirubin 0.30 (0.2-1.3) mg/dL AST 20 (14-36) U/L ALT 19 (0-35) U/L Alkaline Phosphatase 82 (38-126) U/L Serum Total Protein 7.0 (6.3-8.2) g/dL Albumin 4.2 (3.5-5.0) g/dL Amylase 63 (30-110) U/L Lipase 100 (23-300) U/L Serum , Qual NEGATIVE (Negative) Urine Color (YELLOW) Urine Appearance (CLEAR) Urine pH (5-6) Ur Specific [place] (1.005-1.025) Urine Protein (Negative) Urine Ketones (NEGATIVE) Urine Blood (0-5) Shan/ul Urine Nitrite (NEGATIVE) Urine Bilirubin (NEGATIVE) Urine Urobilinogen (0-1) mg/dL Ur Leukocyte Esterase (NEGATIVE) Urine WBC (Auto) (0-5) /HPF Urine RBC (Auto) (0-2) /HPF U Epithel Cells (Auto) (FEW) /HPF Urine Bacteria (Auto) (NEGATIVE) /HPF Urine Mucus (Auto) (NEGATIVE) /HPF Urine Culture Reflexed (NO) Urine Glucose (NEGATIVE) mg/dL Salicylates (2-20) mg/dL Urine Opiates Level (NEGATIVE) Ur Methadone (NEGATIVE) Acetaminophen (10-30) ug/ml Urine Barbiturates (NEGATIVE) Ur Phencyclidine (PCP) (NEGATIVE) Urine Amphetamine (NEGATIVE) U Benzodiazepine Level (NEGATIVE) Urine Cocaine (NEGATIVE) Urine Marijuana (THC) (NEGATIVE) - Progress Progress: improved Progress Note: 06/04/18 09:59 33-year-old white female arrives with complaint of epigastric pain since this morning she states she is nauseous no vomiting. Patient is given IV normal saline and Phenergan she is sleeping and appears to be comfortable when I recheck her. I have sent out to [facility] she does show on a CT of the chest that the patient does have gallstones. Patient appears to be stable labs are stable amylase lipase within normal limits chemistry is normal White count within normal limits. I did order an acute abdominal series to rule out other problems patient refuses x-rays. Will discharge patient prescribed Phenergan. - Departure Time of Disposition: 10:01 Departure Disposition: Home Clinical Impression: Epigastric pain, History of gallstones Condition: Fair Critical Care Time: No Referrals: SHO ZUNIGA MD [NON-STAFF PHY W/O PRIVILEGES] - Additional Instructions: Return home. Plenty of fluids clear fluids only 24-48 hours if abdominal pain avoid milk or fatty foods. Phenergan 25 mg orally every 4-6 hours as needed for nausea, vomiting, or abdominal pain. Follow-up with your family doctor. Return for acute distress or for severe symptoms. Prescriptions: Promethazine HCl 25 mg [Phenergan 25 mg] 25 mg PO Q4-6HPRN PRN #12 tablet PRN Reason: Nausea, vomiting, abd pain
[2018-06-04] MEDS ORDERED: Sodium Chloride 0.9% 1000 ML 1,000 ML ONE (08:02)
[2018-06-04] MEDS ORDERED: Phenergan 25 MG INJ ONE (08:03)
[2018-06-04] MEDS: Phenergan 25 MG INJ IV ONE (08:06)
[2018-06-04] MEDS: Sodium Chloride 0.9% 1000 ML 1,000 ML IV STA (08:06)
[2018-06-04 08:19] LABS: BASOPHIL % 0.4 % (0.0-0.4); Basophil (Absolute #) 0.03 (0-0.4); Eosinophil % 2.7 % (0.00-5.0); Eosinophil (Absolute #) 0.21 (0-0.5); Granulocyte Absolute (ANC) 3.43 (1.4-6.9); Granulocytes % 44.4 % (36.0-66.0); Hematocrit 41.4 % (35-47); Hemoglobin 14.2 gm/dl (12.0-16.0); Lymphocyte (Absolute #) 3.48 (1.0-4.6); Mean Cell Volume 87.2 fl (78-100); Mean Corpuscular Hemoglobin 29.9 pg (26-32); Mean Corpuscular Hgb Concent. 34.3 g/dl (32-36); Mean Platelet Volume 8.9 fl (6-9.5); Monocyte (Absolute #) 0.58 (0.0-1.3); Monocytes % 7.5 % (0.0-12.0); Platelet Count 344 K/mm3 (150-450); Red Blood Count 4.75 M/mm3 (4.1-5.4); Red Cell Distribution Width 12.9 % (11.5-14.0); White Blood Count 7.7 K/mm3 (4.0-10.5)
[2018-06-04 08:31] LABS: ALBUMIN 4.2 g/dL (3.5-5.0); ALKALINE PHOSPHATASE 82 U/L (38-126); AMYLASE 63 U/L (30-110); ANION GAP 15.9 MEQ/L (5-15); BLOOD UREA NITROGEN 16 mg/dL (7-17); CHLORIDE 105 mmol/L (98-107); Calcium 9.3 mg/dL (8.4-10.2); Carbon Dioxide 24 mmol/L (22-30); Creatinine 1 0.51 mg/dL (0.52-1.04); Glucose 107 mg/dL (74-106); LIPASE 100 U/L (23-300); Potassium 3.9 mmol/L (3.5-5.1); SGOT/AST 20 U/L (14-36); SGPT/ALT 19 U/L (0-35); SODIUM 140 mmol/L (137-145)
[2018-06-04 08:34] LABS: ACETAMINOPHEN < 10 ug/ml (10-30); SALICYLATE < 1.0 mg/dL (2-20)
[2018-06-04 09:01] VITALS: O2SAT 98
[2018-06-04 09:12] LABS: Appearance CLOUDY (CLEAR); Bilirubin NEGATIVE (NEGATIVE); Blood NEGATIVE Ery/ul (0-5); Glucose NEGATIVE (NEGATIVE); Ketones NEGATIVE (NEGATIVE); Leukocyte Esterase SMALL (NEGATIVE); Nitrite NEGATIVE (NEGATIVE); Protein,Urine Dip NEGATIVE (Negative); Specific Gravity 1.017 (1.005-1.025); Urobilinogen NEGATIVE mg/dL (0-1)
[2018-06-04 09:25] LABS: Amphetamine,Urine NEGATIVE (NEGATIVE); Barbiturate,Urine NEGATIVE (NEGATIVE); Benzodiazepine,Urine NEGATIVE (NEGATIVE); Cocaine,Urine NEGATIVE (NEGATIVE); Methadone,Urine NEGATIVE (NEGATIVE); Opiate,Urine NEGATIVE (NEGATIVE); PCP,Urine NEGATIVE (NEGATIVE); THC,Urine NEGATIVE (NEGATIVE)
[2018-06-04 10:02] VITALS: BP 107/72; PULSE 78
== END 2018-06-04 10:15 | disposition home or self-care (01) ==
LOC: ED 07:26
DX: R10.13 Epigastric pain (principal); Z87.19 Personal history of other diseases of the digestive system; Z79.899 Other long term (current) drug therapy; R11.10 Vomiting, unspecified
CPT/HCPCS: 36000; 36415; 80053; 80307; 81001; 81025; 82150; 83690; 85025; 93005; 96360; 96374; G0481; 99284; J2550

== ENCOUNTER 2018-08-12 09:14 | Emergency (ER) | payer OTHER ==
[2018-08-12] MEDS ORDERED: Sodium Chloride 0.9% 1000 ML 1,000 ML IV STA ×2 (09:43→10:31)
[2018-08-12] MEDS ORDERED: Phenergan 25 MG INJ IM ONE (09:48)
--- NOTE | 2018-08-12 09:48 | ERPHSYRPT ---
- History of Present Illness Time Seen by Provider: 08/12/18 09:40 Historian: patient Exam Limitations: no limitations Patient Subjective Stated Complaint: abd pain since 0400 today. hx gb disease. also having nausea. Triage Nursing Assessment: to room per w/c. skin w/d, color pale, resp easy. patient moaning loudly. was able to obtain urine specimen and get dressed in gown. urine dark. admits to using meth yesterday. Physician History: 33-year-old white female with history of hypothyroidism, osteoarthritis, degenerative disc disease, gallbladder problems, high blood pressure, OCD Arrives with complaint of epigastric pain symptoms since 4:00 this morning positive vomiting. Patient of does state that she had been using methamphetamines yesterday patient with known history of gallbladder problems. Past medical history includes hypothyroidism, osteoarthritis, degenerative disc disease, gallbladder problems, high blood pressure, OCD Past surgical history includes hysterectomy, EGD, Social history methamphetamine use Timing/Duration: today (4 AM) Activities at Onset: none Quality: cramping Abdominal Pain Onset Location: epigastric Pain Radiation: back Severity of Pain-Max: moderate Severity of Pain-Current: moderate Modifying Factors: Improves With: other (taking Phenergan at home) Associated Symptoms: back, nausea, vomiting, No chest pain, No diaphoresis, No diarrhea, No fever/chills, No fatigue, No headache, No heartburn, No loss of appetite, No neck pain, No rash, No shortness of breath, No syncope Previous symptoms: same symptoms as today Allergies/Adverse Reactions: No Known Drug Allergies Allergy (Verified 08/12/18 09:37) Home Medications: Aripiprazole [Abilify] 2 mg PO DAILY 10/19/15 [History] Cetirizine HCl [Zyrtec] 10 mg PO DAILY 10/19/15 [History] Diclofenac Potassium [Zipsor] 25 mg PO QIDPRN PRN 10/19/15 [History] Escitalopram Oxalate [Lexapro] 30 mg PO DAILY 10/19/15 [History] Omeprazole 20 MG [Prilosec 20 mg] 40 mg PO DAILY 10/19/15 [History] Cyclobenzaprine HCl [Flexeril] 5 - 10 mg PO BID 10/15/16 [History] Hx Tetanus, Diphtheria Vaccination/Date Given: No Hx Influenza Vaccination/Date Given: No Hx Pneumococcal Vaccination/Date Given: No - Review of Systems Constitutional: No Fever, No Chills Eyes: No Symptoms Ears, Nose, & Throat: No Symptoms Respiratory: No Cough, No Dyspnea Cardiac: No Chest Pain, No Edema, No Syncope Abdominal/Gastrointestinal: Abdominal Pain, Nausea, Vomiting Genitourinary Symptoms: No Dysuria Musculoskeletal: No Back Pain, No Neck Pain Skin: No Rash Neurological: No Dizziness, No Focal Weakness, No Sensory Changes Psychological: Drug Abuse Endocrine: No Symptoms All Other Systems: Reviewed and Negative - Past Medical History Pertinent Past Medical History: Yes Neurological History: No Pertinent History Cardiac History: No Pertinent History Respiratory History: No Pertinent History Endocrine Medical History: Hypothyroidism Musculoskeletal History: Osteoarthritis 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 - Past Surgical History Past Surgical History: Yes Female Surgical History: Hysterectomy Other Surgical History: egd, colonscopy, cyst from femur, laparscopy on abd - Social History Smoking Status: Current every day smoker How long have you smoked: 20 years Exposure to second hand smoke: Yes Drug Use: methamphetamines Patient Lives Alone: No - Female History Hx Now: No - Nursing Vital Signs Nursing Vital Signs: Initial Vital Signs Temperature 97.4 F 08/12/18 09:19 Pulse Rate 91 H 08/12/18 09:19 Respiratory Rate 18 08/12/18 09:19 Blood Pressure 111/76 08/12/18 09:19 O2 Sat by Pulse Oximetry 100 08/12/18 09:19 Pain Scale Pain Intensity 10 - Physical Exam General Appearance: moderate distress Eye Exam: PERRL/EOMI, eyes nml inspection Ears, Nose, Throat Exam: normal ENT inspection, pharynx normal, moist mucous membranes Neck Exam: normal inspection, non-tender, supple, full range of motion Respiratory Exam: normal breath sounds, lungs clear, No respiratory distress Cardiovascular Exam: regular rate/rhythm, normal heart sounds, capillary refill <2 sec Gastrointestinal/Abdomen Exam: soft, normal bowel sounds, tenderness ( epigastric tenderness) Back Exam: normal inspection, normal range of motion, No CVA tenderness, No vertebral tenderness Extremity Exam: normal inspection, normal range of motion, pelvis stable Neurologic Exam: alert, oriented x 3, cooperative, summer nanny II-XII nml as tested, normal mood/affect, nml cerebellar function, sensation nml, No motor deficits Skin Exam: normal color, warm, dry SpO2 Interpretation: normal (100%) SpO2: 100 - Course Nursing assessment & vital signs reviewed: Yes EKG Interpreted by Me: RATE (87 bpm), Sinus Rhythm, NORMAL AXIS, Other (EKG: Sinus rhythm, 87 bpm, normal axis, , no acute ST or T wave changes, essentially normal EHG) Ordered Tests: Active Orders 24 hr Category Date Time Status EKG-ER Only STAT Care 08/12/18 09:49 Active IV Insertion STAT Care 08/12/18 09:43 Active AMYLASE Stat Lab 08/12/18 09:45 Completed CBC W DIFF Stat Lab 08/12/18 09:45 Completed CMP Stat Lab 08/12/18 09:45 Completed LIPASE Stat Lab 08/12/18 09:45 Completed UA W/RFX UR CULTURE Stat Lab 08/12/18 10:09 Completed Urine Triage Profile Stat Lab 08/12/18 10:00 Completed Medication Summary Discontinued Medications Generic Name Dose Route Start Last Admin Trade Name Freq PRN Reason Stop Dose Admin Sodium Chloride 1,000 mls @ 999 mls/hr 08/12/18 09:43 08/12/18 11:00 Sodium Chloride 0.9% 1000 Ml IV 08/12/18 10:43 Infused .Q1H1M STA Infusion Sodium Chloride Confirm 08/12/18 09:53 Sodium Chloride 0.9% 1000 Ml Administered 08/12/18 09:54 Dose 1,000 mls @ ud .ROUTE .STK-MED ONE Sodium Chloride 1,000 mls @ 999 mls/hr 08/12/18 10:31 08/12/18 10:57 Sodium Chloride 0.9% 1000 Ml IV 08/12/18 11:31 999 mls/hr .Q1H1M STA Administration Sodium Chloride Confirm 08/12/18 10:43 Sodium Chloride 0.9% 1000 Ml Administered 08/12/18 10:44 Dose 1,000 mls @ ud .ROUTE .STK-MED ONE Promethazine HCl 25 mg 08/12/18 09:48 08/12/18 09:54 Phenergan 25 Mg Inj IM 08/12/18 09:49 25 mg STAT ONE Administration Promethazine HCl Confirm 08/12/18 09:52 Phenergan 25 Mg Inj Administered 08/12/18 09:53 Dose 25 mg .ROUTE .STK-MED ONE Lab/Rad Data: Laboratory Result Diagrams 08/12/18 09:45 08/12/18 09:45 Laboratory Results 08/12/18 08/12/18 08/12/18 Range/Units 10:09 10:00 09:45 WBC (4.0-10.5) K/mm3 RBC (4.1-5.4) M/mm3 Hgb (12.0-16.0) gm/dl Hct (35-47) % MCV (78-100) fl MCH (26-32) pg MCHC (32-36) g/dl RDW (11.5-14.0) % Plt Count (150-450) K/mm3 MPV (6-9.5) fl Gran % (36.0-66.0) % Eos # (Auto) (0-0.5) Absolute Lymphs (auto) (1.0-4.6) Absolute Monos (auto) (0.0-1.3) Lymphocytes % (24.0-44.0) % Monocytes % (0.0-12.0) % Eosinophils % (0.00-5.0) % Basophils % (0.0-0.4) % Absolute Granulocytes (1.4-6.9) Basophils # (0-0.4) Sodium 140 (137-145) mmol/L Potassium 3.6 (3.5-5.1) mmol/L Chloride 108 H (98-107) mmol/L Carbon Dioxide 20 L (22-30) mmol/L Anion Gap 14.9 (5-15) MEQ/L BUN 15 (7-17) mg/dL Creatinine 0.56 (0.52-1.04) mg/dL Estimated GFR > 60.0 ML/MIN Glucose 124 H (74-106) mg/dL Calcium 9.6 (8.4-10.2) mg/dL Total Bilirubin 1.20 (0.2-1.3) mg/dL AST 270 H (14-36) U/L ALT 109 H (0-35) U/L Alkaline Phosphatase 126 (38-126) U/L Serum Total Protein 7.3 (6.3-8.2) g/dL Albumin 4.3 (3.5-5.0) g/dL Amylase 48 (30-110) U/L Lipase 81 (23-300) U/L Urine Color ALINA (YELLOW) Urine Appearance CLOUDY (CLEAR) Urine pH 7.0 (5-6) Ur Specific [place] 1.021 (1.005-1.025) Urine Protein NEGATIVE (Negative) Urine Ketones NEGATIVE (NEGATIVE) Urine Blood NEGATIVE (0-5) Shan/ul Urine Nitrite NEGATIVE (NEGATIVE) Urine Bilirubin NEGATIVE (NEGATIVE) Urine Urobilinogen 4 (0-1) mg/dL Ur Leukocyte Esterase NEGATIVE (NEGATIVE) Urine WBC (Auto) 11-15 (0-5) /HPF Urine RBC (Auto) 3-5 (0-2) /HPF U Epithel Cells (Auto) NONE (FEW) /HPF Urine Bacteria (Auto) FEW (NEGATIVE) /HPF Urine Mucus (Auto) SLIGHT (NEGATIVE) /HPF Urine Culture Reflexed NO (NO) Urine Glucose NEGATIVE (NEGATIVE) mg/dL Urine Opiates Level NEGATIVE (NEGATIVE) Ur Methadone NEGATIVE (NEGATIVE) Urine Barbiturates NEGATIVE (NEGATIVE) Ur Phencyclidine (PCP) NEGATIVE (NEGATIVE) Urine Amphetamine POSITIVE (NEGATIVE) U Benzodiazepine Level NEGATIVE (NEGATIVE) Urine Cocaine NEGATIVE (NEGATIVE) Urine Marijuana (THC) NEGATIVE (NEGATIVE) 08/12/18 Range/Units 09:45 WBC 11.6 H (4.0-10.5) K/mm3 RBC 4.39 (4.1-5.4) M/mm3 Hgb 13.1 (12.0-16.0) gm/dl Hct 38.3 (35-47) % MCV 87.2 (78-100) fl MCH 29.8 (26-32) pg MCHC 34.2 (32-36) g/dl RDW 13.1 (11.5-14.0) % Plt Count 333 (150-450) K/mm3 MPV 9.2 (6-9.5) fl Gran % 74.6 H (36.0-66.0) % Eos # (Auto) 0.13 (0-0.5) Absolute Lymphs (auto) 2.11 (1.0-4.6) Absolute Monos (auto) 0.67 (0.0-1.3) Lymphocytes % 18.2 L (24.0-44.0) % Monocytes % 5.8 (0.0-12.0) % Eosinophils % 1.1 (0.00-5.0) % Basophils % 0.3 (0.0-0.4) % Absolute Granulocytes 8.68 H (1.4-6.9) Basophils # 0.03 (0-0.4) Sodium (137-145) mmol/L Potassium (3.5-5.1) mmol/L Chloride (98-107) mmol/L Carbon Dioxide (22-30) mmol/L Anion Gap (5-15) MEQ/L BUN (7-17) mg/dL Creatinine (0.52-1.04) mg/dL Estimated GFR ML/MIN Glucose (74-106) mg/dL Calcium (8.4-10.2) mg/dL Total Bilirubin (0.2-1.3) mg/dL AST (14-36) U/L ALT (0-35) U/L Alkaline Phosphatase (38-126) U/L Serum Total Protein (6.3-8.2) g/dL Albumin (3.5-5.0) g/dL Amylase (30-110) U/L Lipase (23-300) U/L Urine Color (YELLOW) Urine Appearance (CLEAR) Urine pH (5-6) Ur Specific [place] (1.005-1.025) Urine Protein (Negative) Urine Ketones (NEGATIVE) Urine Blood (0-5) Shan/ul Urine Nitrite (NEGATIVE) Urine Bilirubin (NEGATIVE) Urine Urobilinogen (0-1) mg/dL Ur Leukocyte Esterase (NEGATIVE) Urine WBC (Auto) (0-5) /HPF Urine RBC (Auto) (0-2) /HPF U Epithel Cells (Auto) (FEW) /HPF Urine Bacteria (Auto) (NEGATIVE) /HPF Urine Mucus (Auto) (NEGATIVE) /HPF Urine Culture Reflexed (NO) Urine Glucose (NEGATIVE) mg/dL Urine Opiates Level (NEGATIVE) Ur Methadone (NEGATIVE) Urine Barbiturates (NEGATIVE) Ur Phencyclidine (PCP) (NEGATIVE) Urine Amphetamine (NEGATIVE) U Benzodiazepine Level (NEGATIVE) Urine Cocaine (NEGATIVE) Urine Marijuana (THC) (NEGATIVE) - Progress Progress: improved Progress Note: 08/12/18 11:35 33-year-old white female with a known history of gallbladder disease and gallstones arrives with complaint of epigastric pain since 4:00 this morning. Patient states she has been having abdominal pain had some vomiting patient unfortunately has been using methamphetamines as well Patient is improved after IM Phenergan and 2 L of normal saline Patient with a white count of 11.6 hemoglobin 13.1 hematocrit 38.3 platelets 333 patient's chemistry remarkable for ST PTT of 109 AST of 270 total bilirubin of 1.20 amylase and lipase are normal patient's other chemistry essentially normal patient's urine is remarkable for 11-15 white cells 3-5 red cells and no nitrites and negative leukocyte esterase patient's CBC White blood cell 11.6 hemoglobin 13.1 hematocrit 38.3 EKG sinus rhythm 87 bpm normal axis, no acute ST or T wave changes I have discussed the patient's case with her she is due to see her family doctor in several days. I've offered to have her placed on observation however she does not want to do this. Will go ahead and write for prescription for Phenergan, she states she is out. She is to take clear fluids plenty of fluids. I have advised that she does not use any more methamphetamines. She is to follow-up with her family doctor return for acute distress or for severe symptoms. - Departure Time of Disposition: 11:39 Departure Disposition: Home Clinical Impression: Epigastric pain, History of gallstones, Methamphetamine abuse Condition: Fair Critical Care Time: No Referrals: ROSIO STOLL [Primary Care Provider] - Additional Instructions: Return home. Plenty of fluids clear fluids only 24-48 hours if abdominal pain. Phenergan as prescribed. Stop methamphetamine use. Follow-up with your family doctor call and make an appointment. Return for acute distress or severe symptoms or for any problems. Prescriptions: Promethazine HCl 25 mg [Phenergan 25 mg] 25 mg PO Q4-6HPRN PRN #12 tablet PRN Reason: nausea, vomiting, abd pain
[2018-08-12] MEDS ORDERED: Phenergan 25 MG INJ ONE (09:52)
[2018-08-12] MEDS ORDERED: Sodium Chloride 0.9% 1000 ML 1,000 ML ONE ×2 (09:53→10:43)
[2018-08-12 10:12] LABS: BASOPHIL % 0.3 % (0.0-0.4); Basophil (Absolute #) 0.03 (0-0.4); Eosinophil % 1.1 % (0.00-5.0); Eosinophil (Absolute #) 0.13 (0-0.5); Granulocyte Absolute (ANC) 8.68 (1.4-6.9); Granulocytes % 74.6 % (36.0-66.0); Hematocrit 38.3 % (35-47); Hemoglobin 13.1 gm/dl (12.0-16.0); Lymphocyte (Absolute #) 2.11 (1.0-4.6); Lymphocytes % 18.2 % (24.0-44.0); Mean Cell Volume 87.2 fl (78-100); Mean Corpuscular Hemoglobin 29.8 pg (26-32); Mean Corpuscular Hgb Concent. 34.2 g/dl (32-36); Mean Platelet Volume 9.2 fl (6-9.5); Monocyte (Absolute #) 0.67 (0.0-1.3); Monocytes % 5.8 % (0.0-12.0); Platelet Count 333 K/mm3 (150-450); Red Blood Count 4.39 M/mm3 (4.1-5.4); Red Cell Distribution Width 13.1 % (11.5-14.0); White Blood Count 11.6 K/mm3 (4.0-10.5)
[2018-08-12 10:18] LABS: ALBUMIN 4.3 g/dL (3.5-5.0); ALKALINE PHOSPHATASE 126 U/L (38-126); AMYLASE 48 U/L (30-110); ANION GAP 14.9 MEQ/L (5-15); BLOOD UREA NITROGEN 15 mg/dL (7-17); CHLORIDE 108 mmol/L (98-107); Calcium 9.6 mg/dL (8.4-10.2); Carbon Dioxide 20 mmol/L (22-30); Creatinine 1 0.56 mg/dL (0.52-1.04); Glucose 124 mg/dL (74-106); LIPASE 81 U/L (23-300); Potassium 3.6 mmol/L (3.5-5.1); SGOT/AST 270 U/L (14-36); SGPT/ALT 109 U/L (0-35); SODIUM 140 mmol/L (137-145); Total Protein 7.3 g/dL (6.3-8.2)
[2018-08-12 10:22] LABS: Appearance CLOUDY (CLEAR); Bacteria FEW /HPF (NEGATIVE); Bilirubin NEGATIVE (NEGATIVE); Blood NEGATIVE Ery/ul (0-5); Glucose NEGATIVE (NEGATIVE); Ketones NEGATIVE (NEGATIVE); Leukocyte Esterase NEGATIVE (NEGATIVE); Mucus SLIGHT /HPF (NEGATIVE); Nitrite NEGATIVE (NEGATIVE); Protein,Urine Dip NEGATIVE (Negative); Specific Gravity 1.021 (1.005-1.025); Urobilinogen 4 mg/dL (0-1)
[2018-08-12 10:36] LABS: Barbiturate,Urine NEGATIVE (NEGATIVE); Benzodiazepine,Urine NEGATIVE (NEGATIVE); Cocaine,Urine NEGATIVE (NEGATIVE); Methadone,Urine NEGATIVE (NEGATIVE); Opiate,Urine NEGATIVE (NEGATIVE); PCP,Urine NEGATIVE (NEGATIVE); THC,Urine NEGATIVE (NEGATIVE)
[2018-08-12 11:13] LABS: Amphetamine,Urine POSITIVE (NEGATIVE)
[2018-08-12 12:00] VITALS: BP 94/61; PULSE 101; O2SAT 99
== END 2018-08-12 12:27 | disposition home or self-care (01) ==
LOC: ED 09:14
DX: R10.13 Epigastric pain (principal); F15.11 Other stimulant abuse, in remission; E03.9 Hypothyroidism, unspecified; M19.90 Unspecified osteoarthritis, unspecified site
CPT/HCPCS: 36000; 36415; 80053; 80307; 81001; 82150; 83690; 85025; 93005; 96360; 96361; 96372; 99284; J2550

== ENCOUNTER 2019-03-14 13:16 | Emergency (ER) | payer OTHER ==
--- NOTE | 2019-03-14 13:59 | ERPHSYRPT ---
- History of Present Illness Time Seen by Provider: 03/14/19 13:56 Source: patient, EMS, police Exam Limitations: no limitations Patient Subjective Stated Complaint: ems and police state patient's boyfriend called them stating patient was stating she wanted to . when police arrived patient was inside house yelling that there were people in the house she wanted out. patient had door locked and police had to break down door to get to patient. upon entering house patient was screaming and yelling, having hallucinations. patient states she hasn't taken her regular home meds for a long time. Triage Nursing Assessment: to room per ems cot. skin w/d, color pale, resp nonlabored. patient continuously moaning and repeating "i don't feel good". patient will only state that she hurts all over. has no specific c/o at this time. refuses to give urine sample or put on patient gown at this time. ems here and were able to get patient to agree to getting blood drawn and iv placed. patient has dry sores over entire body. Physician History: 1 years old female bought in to ER by ambulance, ems and police state patient's boyfriend called them stating patient was stating she wanted to . when police arrived patient was inside house yelling that there were people in the house she wanted out. patient had door locked and police had to break down door to get to patient. upon entering house patient was screaming and yelling, having hallucinations. patient states she hasn't taken her regular home meds for a long time. Timing/Duration: today Associated Symptoms: agitated, anxiety, confused, hallucinating, impaired concentration, insomnia, paranoid, suicidal ideation Previous symptoms: different symptoms Allergies/Adverse Reactions: No Known Drug Allergies Allergy (Verified 03/14/19 13:41) Home Medications: Aripiprazole [Abilify] 2 mg PO DAILY 10/19/15 [History] Cetirizine HCl [Zyrtec] 10 mg PO DAILY 10/19/15 [History] Escitalopram Oxalate [Lexapro] 30 mg PO DAILY 10/19/15 [History] Omeprazole 20 MG [Prilosec 20 mg] 40 mg PO DAILY 10/19/15 [History] Cyclobenzaprine HCl [Flexeril] 5 - 10 mg PO BID 10/15/16 [History] Hx Tetanus, Diphtheria Vaccination/Date Given: No Hx Influenza Vaccination/Date Given: No Hx Pneumococcal Vaccination/Date Given: No - Past Medical History Pertinent Past Medical History: Yes Neurological History: No Pertinent History ENT History: No Pertinent History Cardiac History: Angina, Other Respiratory History: No Pertinent History Endocrine Medical History: Hypoglycemia, Hypothyroidism Musculoskeletal History: Osteoarthritis GI Medical History: GERD History: No Pertinent History Psycho-Social History: Anxiety, Depression, Other Female Reproductive Disorders: Other Other Medical History: BULGING DISCS IN THE NECK. PCOS. OCD. MVP, heart murmur - Past Surgical History Past Surgical History: Yes Neuro Surgical History: No Pertinent History Cardiac: No Pertinent History Respiratory: No Pertinent History Gastrointestinal: No Pertinent History Genitourinary: No Pertinent History Musculoskeletal: Orthopedic Surgery Female Surgical History: Hysterectomy, Other Other Surgical History: egd, colonscopy, cyst from femur, laparscopy on abd - Social History Smoking Status: Current every day smoker How long have you smoked: 20 years Exposure to second hand smoke: No Drug Use: methamphetamines Patient Lives Alone: No - Female History Hx Now: No - Review of Systems Constitutional: No Fever, No Chills Eyes: No Symptoms Ears, Nose, & Throat: No Symptoms Respiratory: No Cough, No Dyspnea Cardiac: No Chest Pain, No Edema, No Syncope Abdominal/Gastrointestinal: No Abdominal Pain, No Nausea, No Vomiting, No Diarrhea Genitourinary Symptoms: No Dysuria Musculoskeletal: No Back Pain, No Neck Pain Skin: No Rash Neurological: No Dizziness, No Focal Weakness, No Sensory Changes Psychological: Drug Abuse, Anxiety, Suicidal Ideations, Emotional Lability, Hallucinations, Mood Changes Endocrine: No Symptoms All Other Systems: Reviewed and Negative - Nursing Vital Signs Nursing Vital Signs: Initial Vital Signs Temperature 98.2 F 03/14/19 13:23 Pulse Rate 87 03/14/19 13:23 Respiratory Rate 20 03/14/19 13:23 Blood Pressure 98/72 03/14/19 13:23 O2 Sat by Pulse Oximetry 100 03/14/19 13:23 Pain Scale Pain Intensity 0 - Physical Exam General Appearance: no apparent distress Eyes, Ears, Nose, Throat Exam: normal ENT inspection, moist mucous membranes Neck Exam: normal inspection, non-tender, supple Respiratory Exam: normal breath sounds, lungs clear, No respiratory distress Cardiovascular Exam: regular rate/rhythm, No edema Gastrointestinal/Abdominal Exam: soft, No tenderness, No distention Extremities Exam: normal inspection, normal range of motion, No evidence of injury, No edema Current Suicidality: denies suicide plan Neurological Exam: alert, damage prevention coordinator II-XII nml as tested, oriented x 3 Appearance: disheveled Behavior/Eye Contact/Speech: refused to answer, intoxicated appearance Thoughts/Hallucinations: auditory hallucinations Skin Exam: normal color, warm, dry, No rash SpO2: 100 - Course Nursing assessment & vital signs reviewed: Yes Ordered Tests: Active Orders 24 hr Category Date Time Status Psychiatric Consult STAT Cons 03/14/19 13:39 Active ACETAMINOPHEN Stat Lab 03/14/19 13:40 Completed CBC W DIFF Stat Lab 03/14/19 13:40 Completed CMP Stat Lab 03/14/19 13:40 Completed CULTURE,URINE Stat Lab 03/14/19 14:00 Received ETHYL ALCOHOL Stat Lab 03/14/19 13:40 Completed SALICYLATE Stat Lab 03/14/19 13:40 Completed UA W/RFX UR CULTURE Stat Lab 03/14/19 14:00 Completed Urine Triage Profile Stat Lab 03/14/19 14:00 Completed Lab/Rad Data: Laboratory Result Diagrams 03/14/19 13:40 03/14/19 13:40 Laboratory Results 03/14/19 03/14/19 03/14/19 Range/Units 14:00 14:00 13:40 WBC (4.0-10.5) K/mm3 RBC (4.1-5.4) M/mm3 Hgb (12.0-16.0) gm/dl Hct (35-47) % MCV (78-100) fl MCH (26-32) pg MCHC (32-36) g/dl RDW (11.5-14.0) % Plt Count (150-450) K/mm3 MPV (6-9.5) fl Gran % (36.0-66.0) % Eos # (Auto) (0-0.5) Absolute Lymphs (auto) (1.0-4.6) Absolute Monos (auto) (0.0-1.3) Lymphocytes % (24.0-44.0) % Monocytes % (0.0-12.0) % Eosinophils % (0.00-5.0) % Basophils % (0.0-0.4) % Absolute Granulocytes (1.4-6.9) Basophils # (0-0.4) Sodium 145 (137-145) mmol/L Potassium 3.7 (3.5-5.1) mmol/L Chloride 107 (98-107) mmol/L Carbon Dioxide 25 (22-30) mmol/L Anion Gap 17.1 H (5-15) MEQ/L BUN 7 (7-17) mg/dL Creatinine 0.49 L (0.52-1.04) mg/dL Estimated GFR > 60.0 ML/MIN Glucose 91 (74-106) mg/dL Calcium 9.8 (8.4-10.2) mg/dL Total Bilirubin 0.50 (0.2-1.3) mg/dL AST 54 H (14-36) U/L ALT 52 H (0-35) U/L Alkaline Phosphatase 114 (38-126) U/L Serum Total Protein 8.6 H (6.3-8.2) g/dL Albumin 4.7 (3.5-5.0) g/dL Urine Color YELLOW (YELLOW) Urine Appearance CLEAR (CLEAR) Urine pH 8.0 (5-6) Ur Specific Starks 1.008 (1.005-1.025) Urine Protein NEGATIVE (Negative) Urine Ketones NEGATIVE (NEGATIVE) Urine Blood NEGATIVE (0-5) Shan/ul Urine Nitrite NEGATIVE (NEGATIVE) Urine Bilirubin NEGATIVE (NEGATIVE) Urine Urobilinogen NEGATIVE (0-1) mg/dL Ur Leukocyte Esterase LARGE (NEGATIVE) Urine WBC (Auto) 0-2 (0-5) /HPF Urine RBC (Auto) 0-2 (0-2) /HPF U Epithel Cells (Auto) RARE (FEW) /HPF Urine Bacteria (Auto) RARE (NEGATIVE) /HPF Urine Mucus (Auto) SLIGHT (NEGATIVE) /HPF Urine Culture Reflexed YES (NO) Urine Glucose NEGATIVE (NEGATIVE) mg/dL Salicylates < 1.0 L (2-20) mg/dL Urine Opiates Level NEGATIVE (NEGATIVE) Ur Methadone NEGATIVE (NEGATIVE) Acetaminophen < 10 L (10-30) ug/ml Urine Barbiturates NEGATIVE (NEGATIVE) Ur Phencyclidine (PCP) NEGATIVE (NEGATIVE) Urine Amphetamine NEGATIVE (NEGATIVE) U Benzodiazepine Level NEGATIVE (NEGATIVE) Urine Cocaine NEGATIVE (NEGATIVE) Urine Marijuana (THC) NEGATIVE (NEGATIVE) Ethyl Alcohol < 10 (0-10) mg/dL 03/14/19 Range/Units 13:40 WBC 9.3 (4.0-10.5) K/mm3 RBC 5.05 (4.1-5.4) M/mm3 Hgb 15.4 (12.0-16.0) gm/dl Hct 43.6 (35-47) % MCV 86.3 (78-100) fl MCH 30.5 (26-32) pg MCHC 35.3 (32-36) g/dl RDW 14.4 H (11.5-14.0) % Plt Count 331 (150-450) K/mm3 MPV 9.5 (6-9.5) fl Gran % 71.2 H (36.0-66.0) % Eos # (Auto) 0.13 (0-0.5) Absolute Lymphs (auto) 2.13 (1.0-4.6) Absolute Monos (auto) 0.40 (0.0-1.3) Lymphocytes % 22.9 L (24.0-44.0) % Monocytes % 4.3 (0.0-12.0) % Eosinophils % 1.4 (0.00-5.0) % Basophils % 0.2 (0.0-0.4) % Absolute Granulocytes 6.64 (1.4-6.9) Basophils # 0.02 (0-0.4) Sodium (137-145) mmol/L Potassium (3.5-5.1) mmol/L Chloride (98-107) mmol/L Carbon Dioxide (22-30) mmol/L Anion Gap (5-15) MEQ/L BUN (7-17) mg/dL Creatinine (0.52-1.04) mg/dL Estimated GFR ML/MIN Glucose (74-106) mg/dL Calcium (8.4-10.2) mg/dL Total Bilirubin (0.2-1.3) mg/dL AST (14-36) U/L ALT (0-35) U/L Alkaline Phosphatase (38-126) U/L Serum Total Protein (6.3-8.2) g/dL Albumin (3.5-5.0) g/dL Urine Color (YELLOW) Urine Appearance (CLEAR) Urine pH (5-6) Ur Specific Starks (1.005-1.025) Urine Protein (Negative) Urine Ketones (NEGATIVE) Urine Blood (0-5) Shan/ul Urine Nitrite (NEGATIVE) Urine Bilirubin (NEGATIVE) Urine Urobilinogen (0-1) mg/dL Ur Leukocyte Esterase (NEGATIVE) Urine WBC (Auto) (0-5) /HPF Urine RBC (Auto) (0-2) /HPF U Epithel Cells (Auto) (FEW) /HPF Urine Bacteria (Auto) (NEGATIVE) /HPF Urine Mucus (Auto) (NEGATIVE) /HPF Urine Culture Reflexed (NO) Urine Glucose (NEGATIVE) mg/dL Salicylates (2-20) mg/dL Urine Opiates Level (NEGATIVE) Ur Methadone (NEGATIVE) Acetaminophen (10-30) ug/ml Urine Barbiturates (NEGATIVE) Ur Phencyclidine (PCP) (NEGATIVE) Urine Amphetamine (NEGATIVE) U Benzodiazepine Level (NEGATIVE) Urine Cocaine (NEGATIVE) Urine Marijuana (THC) (NEGATIVE) Ethyl Alcohol (0-10) mg/dL - Progress Progress: unchanged Discussed with : Other ([facility]) Will see patient in: other Counseled pt/family regarding: lab results, diagnosis, need for follow-up - Departure Departure Disposition: Transfer ([facility] inpatient) Clinical Impression: Bipolar 1 disorder with moderate abdirashid Suicidal behavior Qualifiers: Attempted self-injury: without attempted self-injury Qualified Code(s): R46.89 - Other symptoms and signs involving appearance and behavior Condition: Stable Critical Care Time: No Referrals: ROSIO STOLL [Primary Care Provider] - Instructions: Bipolar Disorder (DC)
[2019-03-14 14:05] LABS: ACETAMINOPHEN < 10 ug/ml (10-30); ALBUMIN 4.7 g/dL (3.5-5.0); ALKALINE PHOSPHATASE 114 U/L (38-126); ANION GAP 17.1 MEQ/L (5-15); BLOOD UREA NITROGEN 7 mg/dL (7-17); CHLORIDE 107 mmol/L (98-107); Calcium 9.8 mg/dL (8.4-10.2); Carbon Dioxide 25 mmol/L (22-30); Creatinine 1 0.49 mg/dL (0.52-1.04); Glucose 91 mg/dL (74-106); Potassium 3.7 mmol/L (3.5-5.1); SALICYLATE < 1.0 mg/dL (2-20); SGOT/AST 54 U/L (14-36); SGPT/ALT 52 U/L (0-35); SODIUM 145 mmol/L (137-145); Total Protein 8.6 g/dL (6.3-8.2)
[2019-03-14 14:06] LABS: ETHYL ALCOHOL < 10 mg/dL (0-10)
[2019-03-14 14:07] LABS: BASOPHIL % 0.2 % (0.0-0.4); Basophil (Absolute #) 0.02 (0-0.4); Eosinophil % 1.4 % (0.00-5.0); Eosinophil (Absolute #) 0.13 (0-0.5); Granulocyte Absolute (ANC) 6.64 (1.4-6.9); Granulocytes % 71.2 % (36.0-66.0); Hematocrit 43.6 % (35-47); Hemoglobin 15.4 gm/dl (12.0-16.0); Lymphocyte (Absolute #) 2.13 (1.0-4.6); Lymphocytes % 22.9 % (24.0-44.0); Mean Cell Volume 86.3 fl (78-100); Mean Corpuscular Hemoglobin 30.5 pg (26-32); Mean Corpuscular Hgb Concent. 35.3 g/dl (32-36); Mean Platelet Volume 9.5 fl (6-9.5); Monocytes % 4.3 % (0.0-12.0); Platelet Count 331 K/mm3 (150-450); Red Blood Count 5.05 M/mm3 (4.1-5.4); Red Cell Distribution Width 14.4 % (11.5-14.0); White Blood Count 9.3 K/mm3 (4.0-10.5)
[2019-03-14 14:23] LABS: Appearance CLEAR (CLEAR); Bacteria RARE /HPF (NEGATIVE); Bilirubin NEGATIVE (NEGATIVE); Blood NEGATIVE Ery/ul (0-5); Epithelial Cells RARE /HPF (FEW); Glucose NEGATIVE (NEGATIVE); Ketones NEGATIVE (NEGATIVE); Leukocyte Esterase LARGE (NEGATIVE); Mucus SLIGHT /HPF (NEGATIVE); Nitrite NEGATIVE (NEGATIVE); Protein,Urine Dip NEGATIVE (Negative); RBC 0-2 /HPF (0-2); Specific Gravity 1.008 (1.005-1.025); Urobilinogen NEGATIVE mg/dL (0-1); WBC 0-2 /HPF (0-5)
[2019-03-14 14:24] LABS: Amphetamine,Urine NEGATIVE (NEGATIVE); Barbiturate,Urine NEGATIVE (NEGATIVE); Benzodiazepine,Urine NEGATIVE (NEGATIVE); Cocaine,Urine NEGATIVE (NEGATIVE); Methadone,Urine NEGATIVE (NEGATIVE); Opiate,Urine NEGATIVE (NEGATIVE); PCP,Urine NEGATIVE (NEGATIVE); THC,Urine NEGATIVE (NEGATIVE)
[2019-03-14 17:00] VITALS: PULSE 85
[2019-03-14 18:31] VITALS: BP 108/75; O2SAT 99
== END 2019-03-14 18:32 ==
LOC: ED 13:16
DX: F31.9 Bipolar disorder, unspecified (principal)
CPT/HCPCS: 36415; 80053; 80307; 81001; 85025; 87086; 99285; G0481; 90791; Q3014; G0480

== ENCOUNTER 2019-08-10 10:28 | Day surgery (SDC) | payer OTHER ==
--- NOTE | 2019-08-10 09:32 | HP ---
DATE OF SURGERY: 08/10/2019 HISTORY OF PRESENT ILLNESS: The patient is a 34 year-old patient of Dr. Susana Hernandez. She has gallstones, had some reflux in the past. The patient had been scheduled a few weeks ago but rescheduled as she was not feeling well then. She had nausea, some intermittent right upper quadrant pain, history of hepatitis A, history of gallstones. Her direct bilirubin was 0 back in October. PAST MEDICAL HISTORY: Seasonal allergies. Exposure to hepatitis A in the past. PAST SURGICAL HISTORY: Reconstruction of scar. Osteochondroma removal. Laparoscopy hysterectomy in the past. MEDICATIONS: Diclofenac, omeprazole, famotidine, ranitidine, Abilify, Lexapro, Flexeril, Phenergan. ALLERGIES: NKDA. FAMILY HISTORY: Cancer, diabetes, pulmonary embolism. SOCIAL HISTORY: Smokes a pack per day, denies alcohol abuse. History of meth use in the past. REVIEW OF SYSTEMS: Fourteen systems reviewed. No chest pain or palpitations. Other systems negative or noncontributory as above and per preadmission questionnaire. She had been seen by Dr. Tinsley in the past. PHYSICAL EXAMINATION: GENERAL: No acute distress. HEENT: Sclerae nonicteric. NECK: No JVD. CHEST: Equal excursion, nonlabored breathing. CVS: Regular rate and rhythm. ABDOMEN: Soft, mild tenderness right upper quadrant. No peritoneal signs. EXTREMITIES: No significant edema. NEURO: Alert, oriented, moving extremities symmetrically. No gross motor deficits noted. IMPRESSION: History of cholelithiasis, had hepatitis in the past, had some drug abuse in the past. Given her symptoms and her gallstones, I feel she will benefit from cholecystectomy. General risk of bleeding or infection, risk of trocar injury or hernia, small risk of bowel, bladder or blood vessel injury, small risk of bile leak, bile duct injury, retained stone or sludge possibly requiring further procedure either open or ERCP, general risk of anesthesia, deep venous thrombosis, pulmonary embolism, pneumonia, perioperative risk of aches, pains, bloating, constipation and/or loose stools possibly even chronic in nature, possibility the procedure may not improve her symptoms. She may need further work up and/or testing, endoscopy, other studies or procedures. She is agreeable to proceed with laparoscopic cholecystectomy with possible open as an outpatient.
[~2019-08-10 10:28] MED LIST: DIPRIVAN 200 MG/20 ML IV ONE; Lactated Ringers 1,000 ML IV ONE; SUBLIMAZE 250 MCG/5 ML ONE; Sensorcaine 0.25% 10 ML ONE; Versed 2 MG/2 ML Injection ONE; Zemuron 100 MG/10 ML ONE
[2019-08-10] MEDS: MEFOXIN 2 GM PREMIX** 2 GM/50 ML ML IV SCH (10:48)
[2019-08-10] MEDS: Lactated Ringers 1,000 ML IV SCH (10:48)
[2019-08-10 11:04] VITALS: BP 121/71; PULSE 100; O2SAT 98
[2019-08-10 11:11] LABS: Amphetamine,Urine POSITIVE (NEGATIVE); Barbiturate,Urine NEGATIVE (NEGATIVE); Benzodiazepine,Urine NEGATIVE (NEGATIVE); Cocaine,Urine NEGATIVE (NEGATIVE); Methadone,Urine NEGATIVE (NEGATIVE); Opiate,Urine NEGATIVE (NEGATIVE); PCP,Urine NEGATIVE (NEGATIVE); THC,Urine NEGATIVE (NEGATIVE)
[2019-08-10 11:14] LABS: Hematocrit 41.8 % (35-47); Hemoglobin 14.2 gm/dl (12.0-16.0); Mean Cell Volume 87.6 fl (78-100); Mean Corpuscular Hemoglobin 29.8 pg (26-32); Mean Platelet Volume 9.1 fl (7.5-11.0); Platelet Count 317 K/mm3 (150-450); Red Blood Count 4.77 M/mm3 (4.1-5.4); Red Cell Distribution Width 12.7 % (11.5-14.0); White Blood Count 9.4 K/mm3 (4.0-10.5)
[2019-08-10 11:18] LABS: PROTIME 11.3 SECONDS (9.95-12.35)
[2019-08-10 11:40] LABS: ALBUMIN 4.4 g/dL (3.5-5.0); ALKALINE PHOSPHATASE 93 U/L (38-126); ANION GAP 12.7 MEQ/L (5-15); BLOOD UREA NITROGEN 13 mg/dL (7-17); CHLORIDE 105 mmol/L (98-107); Calcium 9.4 mg/dL (8.4-10.2); Carbon Dioxide 25 mmol/L (22-30); Creatinine 1 0.55 mg/dL (0.52-1.04); Glucose 95 mg/dL (74-106); Potassium 3.8 mmol/L (3.5-5.1); SGOT/AST 40 U/L (14-36); SGPT/ALT 49 U/L (0-35); SODIUM 139 mmol/L (137-145); Total Protein 7.9 g/dL (6.3-8.2)
== END 2019-08-10 11:25 | disposition home or self-care (01) ==
LOC: SDC 10:28
PROVIDERS: ATTEND Surgery
DX: Z53.09 Procedure and treatment not carried out because of other contraindication (principal); K80.80 Other cholelithiasis without obstruction; Z79.899 Other long term (current) drug therapy
CPT/HCPCS: 36415; 80053; 80307; 85027; 85610; J0694; J2250; J2704; J3010

== ENCOUNTER 2019-09-14 11:27 | Day surgery (SDC) | payer OTHER ==
--- NOTE | 2019-09-14 09:28 | HP ---
DATE OF SURGERY: 09/14/2019 HISTORY OF PRESENT ILLNESS: The patient is a 34 year-old with multiple medical problems of anxiety, depression, reflux, polycystic ovarian syndrome. Seen by Dr. Susana Hernandez in the past originally. She had some nausea, intermittent right upper quadrant pain. History of hepatitis A in the past. History of gallstones. Last liver function test was not significantly elevated. She had been scheduled in the past however she apparently had decided to take some methamphetamine and was canceled per anesthesia. She is rescheduled at this point. PAST MEDICAL HISTORY: Seasonal allergies. She has a prior history of hepatitis. She was seen by Dr. Susana Hernandez originally. PAST SURGICAL HISTORY: Reconstruction of scar in the past. Osteochondroma removal in the past. She had hysterectomy. She had laparoscopy in the past. She had been followed by Dr. Susana Hernandez originally. MEDICATIONS: Recently include diclofenac, omeprazole, loratadine, Abilify, Lexapro, Flexeril, Phenergan. ALLERGIES: NKDA. FAMILY HISTORY: Cancer, diabetes, history of pulmonary embolism in the family. SOCIAL HISTORY: Less than a pack per day smoker. Denies alcohol abuse. REVIEW OF SYSTEMS: Fourteen systems reviewed pertinent for as noted above per admission assessment. No chest pain or palpitations other systems negative or noncontributory as above and per preadmission questionnaire. LAB DATA AND TESTS: Ultrasound stones and sludge, contracted thick walled gallbladder. Recent direct bilirubin was 0.4, SGOT 41, SGPT 48. Alkaline phosphatase 6. PHYSICAL EXAMINATION: GENERAL: No acute distress. HEENT: Sclerae nonicteric. NECK: No JVD. CHEST: Equal excursion, nonlabored breathing. CVS: Regular rate and rhythm. ABDOMEN: Soft, tenderness right upper quadrant. EXTREMITIES: No significant edema. NEURO: Alert, oriented, moving extremities symmetrically. No gross motor deficits noted. PSYCH: Appropriate mood and affect. IMPRESSION: Symptomatic cholelithiasis, acute exacerbation of chronic cholecystitis. I feel the patient will benefit from cholecystectomy. Risks and benefits explained in detail including but not limited to bleeding or infection, risk of trocar injury or hernia, risk of bowel, bladder or blood vessel injury, small risk of bile leak, bile duct injury, retained stone or sludge possibly requiring further procedure either open or ERCP, general risk of anesthesia, deep venous thrombosis, pulmonary embolism, pneumonia, perioperative risk of aches, pains, bloating, constipation and/or loose stools possibly even chronic in nature, possibly needing open procedure, possibility that the procedure may not improve her symptoms that she may need further work up and/or testing or follow up with gastroenterology. She also understands the importance of staying off of methamphetamine preoperatively or she will be canceled by anesthesia once again. Otherwise if she remains off methamphetamine, will proceed with laparoscopic cholecystectomy possible open.
[~2019-09-14 11:27] MED LIST changes: -DIPRIVAN 200 MG/20 ML IV ONE; -SUBLIMAZE 250 MCG/5 ML ONE; -Versed 2 MG/2 ML Injection ONE; -Zemuron 100 MG/10 ML ONE
[2019-09-14] MEDS ORDERED: Lactated Ringers 1,000 ML IV SCH (11:30)
[2019-09-14 11:56] LABS: Amphetamine,Urine NEGATIVE (NEGATIVE); Barbiturate,Urine NEGATIVE (NEGATIVE); Benzodiazepine,Urine NEGATIVE (NEGATIVE); Cocaine,Urine NEGATIVE (NEGATIVE); Methadone,Urine NEGATIVE (NEGATIVE); Opiate,Urine NEGATIVE (NEGATIVE); PCP,Urine NEGATIVE (NEGATIVE); THC,Urine NEGATIVE (NEGATIVE)
[2019-09-14] MEDS ORDERED: MEFOXIN 2 GM PREMIX** 2 GM/50 ML ML IV SCH (12:00)
[2019-09-14] MEDS ORDERED: Zofran 4 MG/2 ML VIAL ONE (14:02)
[2019-09-14] MEDS ORDERED: Quelicin Fliptop 200 MG/10 ML ONE (14:02)
[2019-09-14] MEDS ORDERED: SUBLIMAZE 100 MCG/2 ML ONE (14:02)
[2019-09-14] MEDS ORDERED: DIPRIVAN 200 MG/20 ML IV ONE (14:02)
[2019-09-14] MEDS ORDERED: TORAdol 30 mg Injection ONE (14:02)
[2019-09-14] MEDS ORDERED: Decadron 4 MG INJ ONE (14:02)
[2019-09-14] MEDS ORDERED: Xylocaine-Mpf 2% 5 Ml Vial ONE (14:02)
[2019-09-14] MEDS ORDERED: Zemuron 100 MG/10 ML ONE (14:02)
[2019-09-14] MEDS ORDERED: BREVIBLOC 100 MG/10 ML IV ONE (14:46)
[2019-09-14] MEDS ORDERED: DILAUDID 2 MG INJECTION ONE (14:48)
[2019-09-14] MEDS ORDERED: BRIDION 200MG/2ML IV ONE (14:57)
--- NOTE | 2019-09-14 15:26 | OP ---
SURGERY DATE/TIME: 09/14/2019 1406 PREOPERATIVE DIAGNOSIS: Symptomatic cholelithiasis, acute exacerbation chronic cholecystitis. History of hepatitis in the past. POSTOPERATIVE DIAGNOSIS: Symptomatic cholelithiasis, acute exacerbation chronic cholecystitis. History of hepatitis in the past. PROCEDURE: Laparoscopic cholecystectomy. SURGEON: Dr. Christophe Gomez. ANESTHESIA: General. ESTIMATED BLOOD LOSS: Minimal. INDICATIONS: As noted above. Risks and benefits explained in detail but not limited to and consent obtained. DESCRIPTION OF PROCEDURE AND FINDINGS: The patient was taken to the operating room. General anesthesia induced. Abdomen prepped and draped in the usual sterile fashion. After official time out and no disagreement with planned procedure, a transverse incision made infraumbilical area as she had supraumbilical piercing. Fascia grasped and pulled upward. Veress needle inserted and tested with saline. Pneumoperitoneum accomplished insufflating opening pressure of 0-15. A 5 mm bladeless port and camera inserted without difficulty followed by 5 mm infraumbilical port site and 03/27 in the epigastrium. The gallbladder had some chronic inflammatory reaction, dissected posterior, lateral to anterior fashion. It was very vascular. Slowly and carefully cystic duct and infundibular area slowly and carefully well skeletonized until the critical view obtained both anteriorly and posteriorly. Cystic duct and main cystic artery isolated and clipped x3 and divided in the usual fashion. There was a little pulsatile side branch which required a couple additional clips. A small piece of Surgicel was left in place. The gallbladder slowly and carefully dissected free from its dense attachment to liver bed. Again, it was quite vascular requiring clipping additional oozing side branches off the cystic artery and cystic vein directly on the gallbladder wall as necessary. Whether she had antiplatelet or nonsteroidal effect or not is unclear. The gallbladder is slowly and carefully dissected free. Just prior to releasing from final attachments to the anterior edge of the liver, the liver bed re-inspected. Clips noted to be in place cystic duct and cystic artery stump. There were no signs of any active bleeding or bile leakage. It is felt there is no benefit in drain placement. Gallbladder released from final attachments to anterior edge of the liver. One of the graspers tore a small hole in it. Gallbladder released from final attachments to anterior edge of liver, placed in a bag provided by the hospital and pulled free and passed off. Copious amount of irrigation accomplished lateral to the liver and subhepatic space irrigating until clear. The 03/27 fascial defect closed with puncture closure device with #1 Vicryl. At this point liver bed re-inspected one last time. Clips noted to be in place in cystic duct and cystic artery stump. No signs of any active bleeding or bile leakage. Although she looked a little raw it appeared to have adequate hemostasis at this point. It was felt there was no benefit from drain placement. At this point pneumoperitoneum decompressed. The wound irrigated out. Skin incision closed with 4-0 Vicryl. Steri-Strips and sterile dressing applied. 0.25% Marcaine local injected along the skin incision fascial defect at the beginning of the procedure. There were no immediate complications. There was no family available to discuss the findings with out in the waiting area.
[2019-09-14] MEDS ORDERED: MORPHINE SULFATE 2 MG INJ IV PRN (15:54)
[2019-09-14 16:06] VITALS: O2SAT 94
[2019-09-14 16:31] VITALS: BP 127/72; PULSE 116
== END 2019-09-14 16:50 | disposition home or self-care (01) ==
LOC: SDC 11:27
PROVIDERS: ATTEND Surgery
DX: K80.10 Calculus of gallbladder with chronic cholecystitis without obstruction (principal); Z86.19 Personal history of other infectious and parasitic diseases; Z79.899 Other long term (current) drug therapy
CPT/HCPCS: 80307; 84703; J0330; J0694; J1100; J1170; J1885; J2270; J2405; J2704; J3010

== ENCOUNTER 2020-06-01 12:29 | Emergency (ER) | payer OTHER ==
--- NOTE | 2020-06-01 12:45 | ERPHSYRPT ---
- History of Present Illness Time Seen by Provider: 06/01/20 12:45 Source: patient Exam Limitations: no limitations Physician History: This is an overweight 35-year-old white female who was at her primary care doctor's office for a routine visit per her report. There, she was found to have a rapid heart rate in the 140s per their report to us by phone. Patient is a known methamphetamine abuser. Patient did not deny this when she came to the emergency department for evaluation. Patient is hypothyroid. She has bipolar disorder as well as gastroesophageal reflux disease. Patient states that she has been asymptomatic. She did not know that her heart was racing. She did not have chest pain she does not have shortness of breath. She has no abdominal pain. She has no headaches or visual changes. Patient states that she uses methamphetamine often and is unsure why this time her heart is racing. Timing/Duration: today Activities at Onset: none Quality: other (asymptomatic) Chest Pain Radiation: no radiation Severity of Pain-Max: none Severity of Pain-Current: none Modifying Factors: Improves With: nothing Nitro Today/Relief: no nitro taken today Aspirin Treatment Today: no aspirin today Associated Symptoms: denies symptoms Prior Chest Pain/Cardiac Workup: no prior chest pain, no prior cardiac workup Allergies/Adverse Reactions: No Known Drug Allergies Allergy (Verified 06/01/20 12:47) Home Medications: Aripiprazole [Abilify] 6 mg PO DAILY 10/19/15 [History] Omeprazole 20 MG [Prilosec 20 mg] 40 mg PO DAILY 10/19/15 [History] Diclofenac Sodium 50 mg [Voltaren 50 mg] 50 mg PO BID 06/22/19 [History] Famotidine 20 mg [Pepcid 20 MG] 40 mg PO DAILY 06/22/19 [History] Loratadine 10 mg [Claritin 10 mg] 10 mg PO DAILY 06/22/19 [History] Promethazine HCl 25 mg [Phenergan 25 mg] 25 mg PO Q8H PRN PRN 06/22/19 [History] Levothyroxine Sodium 25 Mcg [Synthroid 25 Mcg] 37.5 mcg PO DAILY 07/31/19 [History] Cyclobenzaprine HCl [Flexeril] 5 mg PO TID 09/14/19 [History] Citalopram Hydrobromide 20 mg* [ceLEXa 20 MG] 20 mg PO DAILY 06/01/20 [History] Hx Tetanus, Diphtheria Vaccination/Date Given: No Hx Influenza Vaccination/Date Given: No Hx Pneumococcal Vaccination/Date Given: No Travel Risk - International Travel Have you traveled outside of the country in past 3 weeks: No - Coronavirus Screening Are you exhibiting any of the following symptoms?: No Close contact with a COVID-19 positive Pt in past 14-21 Days: No - Review of Systems Constitutional: No Symptoms Eyes: No Symptoms Ears, Nose, & Throat: No Symptoms Respiratory: No Symptoms Cardiac: No Symptoms Abdominal/Gastrointestinal: No Symptoms Genitourinary Symptoms: No Symptoms Musculoskeletal: No Symptoms Skin: No Symptoms Neurological: No Symptoms Psychological: No Symptoms Endocrine: No Symptoms Hematologic/Lymphatic: No Symptoms Immunological/Allergic: No Symptoms All Other Systems: Reviewed and Negative - Past Medical History Pertinent Past Medical History: Yes Neurological History: No Pertinent History ENT History: No Pertinent History Cardiac History: Angina, Other Respiratory History: No Pertinent History Endocrine Medical History: Hypoglycemia, Hypothyroidism Musculoskeletal History: Osteoarthritis GI Medical History: GERD History: No Pertinent History Psycho-Social History: Anxiety, Depression, Other Female Reproductive Disorders: Other Other Medical History: BULGING DISCS IN THE NECK. PCOS. OCD. MVP, heart murmur- in the past - Past Surgical History Past Surgical History: Yes Neuro Surgical History: No Pertinent History Cardiac: No Pertinent History Respiratory: No Pertinent History Gastrointestinal: No Pertinent History Genitourinary: No Pertinent History Musculoskeletal: Orthopedic Surgery Female Surgical History: Hysterectomy, Other Other Surgical History: egd, colonscopy,osteochondroma to Left femur, laparscopy on abd - Social History Smoking Status: Current every day smoker How long have you smoked: 20 years Exposure to second hand smoke: No Drug Use: methamphetamines Patient Lives Alone: No - Nursing Vital Signs Nursing Vital Signs: Initial Vital Signs Temperature 99.0 F 06/01/20 12:39 Pulse Rate 137 H 06/01/20 12:39 Respiratory Rate 16 06/01/20 12:39 O2 Sat by Pulse Oximetry 100 06/01/20 12:39 Pain Scale Pain Intensity 0 - Physical Exam General Appearance: no apparent distress, alert, obese Eye Exam: PERRL/EOMI, eyes nml inspection Ears, Nose, Throat Exam: normal ENT inspection, moist mucous membranes Neck Exam: normal inspection, non-tender, supple, full range of motion Respiratory Exam: normal breath sounds, lungs clear, airway intact, No chest tenderness, No respiratory distress Cardiovascular Exam: tachycardia Gastrointestinal/Abdomen Exam: soft, normal bowel sounds, No tenderness Pelvic Exam: not done Rectal Exam: not done Back Exam: normal inspection, normal range of motion, No CVA tenderness Extremity Exam: normal inspection, normal range of motion, pelvis stable Neurologic Exam: alert, oriented x 3, cooperative, shot man II-XII nml as tested, normal mood/affect, nml cerebellar function, nml station & gait Skin Exam: normal color, warm, dry Lymphatic Exam: No adenopathy SpO2 Interpretation: normal O2 Delivery: Room Air - Course Nursing assessment & vital signs reviewed: Yes EKG Interpreted by Me: RATE ([id number]), Sinus Rhythm, Sinus Tach, NORMAL AXIS, NORMAL INTERVALS, NORMAL QRS, NORMAL ST-T, Other (no acute ischemia. there is new sinus tach today vs ekg dated 08/12/18) Ordered Tests: Active Orders 24 hr Category Date Time Status Retail Product Demo Specialist STAT Care 06/01/20 13:04 Active Clean Catch Urine Specimen STAT Care 06/01/20 13:03 Active EKG-ER Only STAT Care 06/01/20 13:03 Active IV Insertion STAT Care 06/01/20 13:03 Active Pulse Oximetry (ED) STAT Care 06/01/20 13:03 Active CHEST WITH CONTRAST [CT] Stat Exams 06/01/20 14:28 Completed CBC W DIFF Routine Lab 06/01/20 13:00 Completed CMP Stat Lab 06/01/20 13:13 Completed D-DIMER QUANTITATIVE Stat Lab 06/01/20 13:13 Completed MAGNESIUM Stat Lab 06/01/20 13:13 Completed NT PRO BNP Stat Lab 06/01/20 13:13 Completed PROTIME WITH INR Stat Lab 06/01/20 13:13 Completed T4 (Thyroxine) Stat Lab 06/01/20 13:13 Completed TROPONIN Q3H Lab 06/01/20 13:13 Completed TROPONIN Q3H Lab 06/01/20 16:15 Ordered TROPONIN Q3H Lab 06/01/20 19:15 Ordered TROPONIN Q3H Lab 06/01/20 22:15 Ordered TROPONIN Q3H Lab 06/02/20 01:15 Ordered TSH, 3RD Generation Stat Lab 06/01/20 13:13 Completed Urine Triage Profile Stat Lab 06/01/20 13:13 Completed Medication Summary Discontinued Medications Generic Name Dose Route Start Last Admin Trade Name Candice PRN Reason Stop Dose Admin Sodium Chloride 1,000 mls @ 999 mls/hr 06/01/20 13:03 06/01/20 14:33 Sodium Chloride 0.9% 1000 Ml IV 06/01/20 14:03 Infused .Q1H1M STA Infusion Sodium Chloride Confirm 06/01/20 13:19 Sodium Chloride 0.9% 1000 Ml Administered 06/01/20 13:20 Dose 1,000 mls @ ud .ROUTE .STK-MED ONE Lorazepam 1 mg 06/01/20 13:03 06/01/20 13:23 Ativan 2 Mg/1 Ml Vial IV 06/01/20 13:04 1 mg STAT ONE Administration Lorazepam Confirm 06/01/20 13:19 Ativan 2 Mg/1 Ml Vial Administered 06/01/20 13:20 Dose 2 mg .ROUTE .STK-MED ONE Lorazepam 1 mg 06/01/20 14:28 Ativan 2 Mg/1 Ml Vial IV 06/01/20 14:29 STAT ONE Lab/Rad Data: Laboratory Result Diagrams 06/01/20 13:00 06/01/20 13:13 Laboratory Results 06/01/20 06/01/20 06/01/20 Range/Units 13:13 13:13 13:13 WBC (4.0-10.5) K/mm3 RBC (4.1-5.4) M/mm3 Hgb (12.0-16.0) gm/dl Hct (35-47) % MCV (78-100) fl MCH (26-32) pg MCHC (32-36) g/dl RDW (11.5-14.0) % Plt Count (150-450) K/mm3 MPV (7.5-11.0) fl Gran % (36.0-66.0) % Eos # (Auto) (0-0.5) Absolute Lymphs (auto) (1.0-4.6) Absolute Monos (auto) (0.0-1.3) Lymphocytes % (24.0-44.0) % Monocytes % (0.0-12.0) % Eosinophils % (0.00-5.0) % Basophils % (0.0-0.4) % Absolute Granulocytes (1.4-6.9) Basophils # (0-0.4) PT (9.95-12.35) SECONDS INR (0.8-3.0) D-Dimer (215-500) ng/mL Sodium (137-145) mmol/L Potassium (3.5-5.1) mmol/L Chloride (98-107) mmol/L Carbon Dioxide (22-30) mmol/L Anion Gap (5-15) MEQ/L BUN (7-17) mg/dL Creatinine (0.52-1.04) mg/dL Estimated GFR ML/MIN Glucose (74-106) mg/dL Calcium (8.4-10.2) mg/dL Magnesium (1.6-2.3) mg/dL Total Bilirubin (0.2-1.3) mg/dL AST (14-36) U/L ALT (0-35) U/L Alkaline Phosphatase (38-126) U/L Troponin I < 0.012 (0.000-0.034) ng/mL NT-Pro-B Natriuret Pep (0-450) pg/mL Serum Total Protein (6.3-8.2) g/dL Albumin (3.5-5.0) g/dL Thyroxine (T4) (5.53-10.96) ug/dL TSH 3rd Generation (0.47-4.68) mIU/L Urinalys Dipstick Clnc MAIN LAB Urine Color YELLOW (YELLOW) Urine Appearance CLEAR (CLEAR) Urine pH 5.5 (5-6) Ur Specific [place] 1.015 (1.005-1.025) POC Urine Protein Conf NEGATIVE (Negative) Urine Ketones NEGATIVE (NEGATIVE) Urine Nitrite NEGATIVE (NEGATIVE) Urine Bilirubin NEGATIVE (NEGATIVE) Urine Urobilinogen 0.2 (0-1) mg/dL Urine Leukocytes NEGATIVE (NEGATIVE) Urine WBC (Auto) 0-2 (0-5) /HPF Urine RBC (Auto) NONE SEEN (0-2) /HPF U Epithel Cells (Auto) FEW (FEW) /HPF Urine Bacteria (Auto) RARE (NEGATIVE) /HPF Urine RBC NEGATIVE (0-5) Shan/ul Ur Culture Indicated? NO Urine Glucose NEGATIVE (NEGATIVE) mg/dL Urine Opiates Level NEGATIVE (NEGATIVE) Ur Methadone NEGATIVE (NEGATIVE) Urine Barbiturates NEGATIVE (NEGATIVE) Ur Phencyclidine (PCP) NEGATIVE (NEGATIVE) Urine Amphetamine POSITIVE (NEGATIVE) U Benzodiazepine Level NEGATIVE (NEGATIVE) Urine Cocaine NEGATIVE (NEGATIVE) Urine Marijuana (THC) NEGATIVE (NEGATIVE) 06/01/20 06/01/20 06/01/20 Range/Units 13:13 13:13 13:00 WBC 12.4 H (4.0-10.5) K/mm3 RBC 4.75 (4.1-5.4) M/mm3 Hgb 13.9 (12.0-16.0) gm/dl Hct 41.3 (35-47) % MCV 86.9 (78-100) fl MCH 29.3 (26-32) pg MCHC 33.7 (32-36) g/dl RDW 13.6 (11.5-14.0) % Plt Count 377 (150-450) K/mm3 MPV 9.3 (7.5-11.0) fl Gran % 64.9 (36.0-66.0) % Eos # (Auto) 0.14 (0-0.5) Absolute Lymphs (auto) 3.40 (1.0-4.6) Absolute Monos (auto) 0.81 (0.0-1.3) Lymphocytes % 27.3 (24.0-44.0) % Monocytes % 6.5 (0.0-12.0) % Eosinophils % 1.1 (0.00-5.0) % Basophils % 0.2 (0.0-0.4) % Absolute Granulocytes 8.06 H (1.4-6.9) Basophils # 0.03 (0-0.4) PT 11.1 (9.95-12.35) SECONDS INR 0.98 (0.8-3.0) D-Dimer 933 H* (215-500) ng/mL Sodium 138 (137-145) mmol/L Potassium 4.2 (3.5-5.1) mmol/L Chloride 102 (98-107) mmol/L Carbon Dioxide 24 (22-30) mmol/L Anion Gap 16.2 H (5-15) MEQ/L BUN 12 (7-17) mg/dL Creatinine 0.57 (0.52-1.04) mg/dL Estimated GFR > 60.0 ML/MIN Glucose 80 (74-106) mg/dL Calcium 10.2 (8.4-10.2) mg/dL Magnesium 2.1 (1.6-2.3) mg/dL Total Bilirubin 0.30 (0.2-1.3) mg/dL AST 29 (14-36) U/L ALT 25 (0-35) U/L Alkaline Phosphatase 100 (38-126) U/L Troponin I (0.000-0.034) ng/mL NT-Pro-B Natriuret Pep 22.8 (0-450) pg/mL Serum Total Protein 8.6 H (6.3-8.2) g/dL Albumin 4.8 (3.5-5.0) g/dL Thyroxine (T4) 9.07 (5.53-10.96) ug/dL TSH 3rd Generation 6.740 H (0.47-4.68) mIU/L Urinalys Dipstick Clnc Urine Color (YELLOW) Urine Appearance (CLEAR) Urine pH (5-6) Ur Specific [place] (1.005-1.025) POC Urine Protein Conf (Negative) Urine Ketones (NEGATIVE) Urine Nitrite (NEGATIVE) Urine Bilirubin (NEGATIVE) Urine Urobilinogen (0-1) mg/dL Urine Leukocytes (NEGATIVE) Urine WBC (Auto) (0-5) /HPF Urine RBC (Auto) (0-2) /HPF U Epithel Cells (Auto) (FEW) /HPF Urine Bacteria (Auto) (NEGATIVE) /HPF Urine RBC (0-5) Shan/ul Ur Culture Indicated? Urine Glucose (NEGATIVE) mg/dL Urine Opiates Level (NEGATIVE) Ur Methadone (NEGATIVE) Urine Barbiturates (NEGATIVE) Ur Phencyclidine (PCP) (NEGATIVE) Urine Amphetamine (NEGATIVE) U Benzodiazepine Level (NEGATIVE) Urine Cocaine (NEGATIVE) Urine Marijuana (THC) (NEGATIVE) - Progress Progress: improved, re-examined Air Movement: good Progress Note: 06/01/20 15:59 CAT scan of the chest with contrast shows no pulmonary embolism. There is no new or acute cardiopulmonary abnormalities. Medical decision making: This patient had asymptomatic tachycardia that has improved since her admission into the emergency department. Her work-up is negative for any acute emergent process. Patient is positive for methamphetamines. This may be the cause of her symptoms. 06/01/20 16:01 At the time of discharge her heart rate is 105 to 106 bpm. Her blood pressure is 129/86. Patient is asymptomatic. Blood Culture(s) Obtained: No Antibiotics given: No Counseled pt/family regarding: lab results, diagnosis, need for follow-up, rad results - Departure Departure Disposition: Home Clinical Impression: Sinus tachycardia, Methamphetamine abuse Condition: Stable Critical Care Time: No Referrals: ROSIO STOLL [Primary Care Provider] - Additional Instructions: Stop your methamphetamine abuse. Follow-up with your prescribing doctor for further evaluation and management.
[2020-06-01] MEDS ORDERED: Ativan 2 MG/1 ML VIAL IV ONE ×2 (13:03→14:28)
[2020-06-01] MEDS ORDERED: Sodium Chloride 0.9% 1000 ML 1,000 ML IV STA (13:03)
[2020-06-01] MEDS ORDERED: Sodium Chloride 0.9% 1000 ML 1,000 ML ONE (13:19)
[2020-06-01] MEDS ORDERED: Ativan 2 MG/1 ML VIAL ONE (13:19)
[2020-06-01 13:36] LABS: Absolute Neutrophil Ct (ANC) 8.06 (1.4-6.9); BASOPHIL % 0.2 % (0.0-0.4); Basophil (Absolute #) 0.03 (0-0.4); Eosinophil % 1.1 % (0.00-5.0); Eosinophil (Absolute #) 0.14 (0-0.5); Hematocrit 41.3 % (35-47); Hemoglobin 13.9 gm/dl (12.0-16.0); Lymphocytes % 27.3 % (24.0-44.0); Mean Cell Volume 86.9 fl (78-100); Mean Corpuscular Hemoglobin 29.3 pg (26-32); Mean Corpuscular Hgb Concent. 33.7 g/dl (32-36); Mean Platelet Volume 9.3 fl (7.5-11.0); Monocyte (Absolute #) 0.81 (0.0-1.3); Monocytes % 6.5 % (0.0-12.0); Neutrophil % 64.9 % (36.0-66.0); Platelet Count 377 K/mm3 (150-450); Red Blood Count 4.75 M/mm3 (4.1-5.4); Red Cell Distribution Width 13.6 % (11.5-14.0); White Blood Count 12.4 K/mm3 (4.0-10.5)
[2020-06-01 13:36] LABS: INR 0.98 (0.8-3.0); PROTIME 11.1 SECONDS (9.95-12.35)
[2020-06-01 13:39] LABS: Appearance CLEAR (CLEAR); Bilirubin NEGATIVE (NEGATIVE); Glucose NEGATIVE (NEGATIVE); Ketones NEGATIVE (NEGATIVE); Protein,Urine Dip NEGATIVE (Negative); RBC NEGATIVE Ery/ul (0-5); Specific Gravity 1.015 (1.005-1.025)
[2020-06-01 13:40] LABS: Dipstick done @ ? MAIN LAB; Nitrite NEGATIVE (NEGATIVE); Urobilinogen 0.2 mg/dL (0-1)
[2020-06-01 13:42] LABS: RBC NONE SEEN /HPF (0-2); WBC 0-2 /HPF (0-5)
[2020-06-01 13:43] LABS: Bacteria RARE /HPF (NEGATIVE); Epithelial Cells FEW /HPF (FEW)
[2020-06-01 14:00] LABS: Barbiturate,Urine NEGATIVE (NEGATIVE); Benzodiazepine,Urine NEGATIVE (NEGATIVE); Cocaine,Urine NEGATIVE (NEGATIVE); Methadone,Urine NEGATIVE (NEGATIVE); Opiate,Urine NEGATIVE (NEGATIVE); PCP,Urine NEGATIVE (NEGATIVE); THC,Urine NEGATIVE (NEGATIVE)
[2020-06-01 14:14] LABS: ALBUMIN 4.8 g/dL (3.5-5.0); ALKALINE PHOSPHATASE 100 U/L (38-126); ANION GAP 16.2 MEQ/L (5-15); BLOOD UREA NITROGEN 12 mg/dL (7-17); CHLORIDE 102 mmol/L (98-107); Calcium 10.2 mg/dL (8.4-10.2); Carbon Dioxide 24 mmol/L (22-30); Creatinine 1 0.57 mg/dL (0.52-1.04); EST GLOMERULAR FILTRATION RATE > 60.0 ML/MIN; Glucose 80 mg/dL (74-106); MAGNESIUM 2.1 mg/dL (1.6-2.3); NT PRO BNP 22.8 pg/mL (0-450); Potassium 4.2 mmol/L (3.5-5.1); SGOT/AST 29 U/L (14-36); SGPT/ALT 25 U/L (0-35); SODIUM 138 mmol/L (137-145); T4 (Thyroxine) 9.07 ug/dL (5.53-10.96); Total Protein 8.6 g/dL (6.3-8.2)
[2020-06-01 14:22] LABS: Amphetamine,Urine POSITIVE (NEGATIVE)
--- NOTE | 2020-06-01 15:25 | XRAY ---
Indication: Tachycardia. Elevated d-dimer. Multiple contiguous axial images obtained through the chest using 100 cc Isovue 370 contrast and PE protocol. Comparison: January 20, 2019. There is adequate opacification of the pulmonary arteries to include the lobar and segmental branches. Again no pulmonary embolus. Heart is not enlarged. Aorta is normal in course and caliber. No pathologic mediastinal/hilar lymphadenopathy. Lungs demonstrate stable tiny right upper lobe calcified granulomas. Minimal bibasilar subsegmental atelectasis/scarring. No suspicious pulmonary mass, infiltrate, or effusion. Bony thorax intact. Limited upper abdomen demonstrates interval cholecystectomy. Mild diffuse fatty liver. Impression: 1. Continue negative pulmonary embolus. No new or acute cardiopulmonary abnormalities. 2. Incidental calcified granulomas and fatty liver.
[2020-06-01 16:04] VITALS: BP 129/88; PULSE 105; O2SAT 98
== END 2020-06-01 16:20 | disposition home or self-care (01) ==
LOC: ED 12:29
DX: R00.0 Tachycardia, unspecified (principal); F15.10 Other stimulant abuse, uncomplicated; E16.2 Hypoglycemia, unspecified; E03.9 Hypothyroidism, unspecified; F17.200 Nicotine dependence, unspecified, uncomplicated; E66.9 Obesity, unspecified; Z79.899 Other long term (current) drug therapy
CPT/HCPCS: 36000; 36415; 71260; 80053; 80307; 81015; 83735; 83880; 84436; 84443; 84484; 85025; 85379; 85610; 93005; 93041; 94760; 96360; 96374; 99284; J2060

== ENCOUNTER 2021-05-15 09:15 | Day surgery (SDC) | payer OTHER ==
--- NOTE | 2021-05-12 11:38 | HP ---
PROCEDURE DATE: 05/15/2021 HISTORY OF PRESENT ILLNESS: Patient is a 36 year who had some increased reflux. Last upper endoscopy was a long time ago. She has been on Protonix and famotidine. Given the increased reflux despite famotidine and Protonix, she will need upper endoscopy to evaluate for gastritis, peptic ulcer disease, esophagitis or other etiology. PAST MEDICAL HISTORY: Has had hepatitis in the past, polycystic ovarian syndrome in the past, anxiety/depression in the past. CURRENT MEDICATIONS: Diclofenac, Flexeril, Prilosec, loratadine, Abilify, Celexa, Remeron, and Wellbutrin. PAST SURGICAL HISTORY: She had hysterectomy, cholecystectomy, left hip chondroma removed in the past, scar revision in the past. FAMILY HISTORY: Negative for esophageal cancer. Diabetes. History of pulmonary embolus in the family. SOCIAL HISTORY: Less than a pack per day. Denies current alcohol abuse. REVIEW OF SYSTEMS: 14 systems reviewed pertinent for as noted above. PHYSICAL EXAMINATION: GENERAL: No acute distress. HEENT: Sclerae nonicteric. NECK: No JVD. CHEST: Equal excursion. Nonlabored breathing. CVS: Regular rate and rhythm. ABDOMEN: Soft. No peritoneal signs. EXTREMITIES: No cyanosis. NEURO: Alert, moving extremities symmetrically. PSYCH: Full mood and affect. IMPRESSION: 1. INCREASED REFLUX. Needs upper endoscopy to evaluate for gastritis, esophagitis, peptic ulcer disease, or other etiology. Risks and benefits explained in detail, but not limited to, bleeding; infection; risk of bowel injury or perforation possibly requiring open procedure; risk of missed or nondiagnosis or incomplete exam possibly requiring barium swallow or other studies or procedures; general risks of anesthesia or sedation, but not limited to; possibility of unable to diagnose etiology of her symptoms. She understands and agrees to the planned procedure. Will proceed with EGD with possible biopsy, as an outpatient.
[2021-05-15] MEDS ORDERED: Lactated Ringers 1,000 ML IV SCH (10:30)
[2021-05-15] MEDS ORDERED: DIPRIVAN 200 MG/20 ML IV ONE (11:15)
[2021-05-15] MEDS ORDERED: Versed 2 MG/2 ML Injection ONE (11:15)
[2021-05-15 12:13] VITALS: PULSE 92
[2021-05-15 12:44] VITALS: BP 115/76; O2SAT 98
--- NOTE | 2021-05-15 13:24 | OP ---
SURGERY DATE/TIME: 05/15/2021 1119 PREOPERATIVE DIAGNOSIS: Increased reflux. POSTOPERATIVE DIAGNOSES: 1) Erosive gastritis without visible ulcer. 2) Slight erythema distal esophagitis without erosion, without gross endoscopic view of Smalls's. 3) Small gastric polyp. PROCEDURES: 1) EGD with cold biopsy of small bowel for celiac sprue. 2) Cold biopsy of antrum to evaluate for Helicobacter pylori. 3) Cold biopsy of gastric polyp. 4) Cold biopsy distal esophagus. 5) Cold biopsy mid esophagus to evaluate for eosinophilic esophagitis. SURGEON: Dr. Christophe Gomez. ANESTHESIA: MAC. ESTIMATED BLOOD LOSS: Minimal. INDICATIONS: As noted above. Risks and benefits explained in detail and not limited to and consent obtained. DESCRIPTION OF PROCEDURE AND FINDINGS: The patient is taken to the endoscopy room. MAC anesthesia introduced. After official time out and no disagreement with planned procedure, a bite block positioned. Video gastroscope easily passed down the esophagus through the patent pylorus to the third portion of the duodenum. The third, second and first portion of the duodenum grossly unremarkable. Cold biopsy taken to evaluate for celiac sprue. Good hemostasis noted. The scope pulled back into the antrum. It did have sign of some petechial ooze from erosive gastritis. There were no gross ulcers. No obvious gross masses. Cold biopsy taken in the antrum for Helicobacter pylori. On retroflex had some benign appearing fundal gland polyps the largest of which was removed with cold biopsy forceps. Good hemostasis noted. The scope is straightened. The gastroesophageal junction 38 cm. Z-line was fairly crisp. No gross signs of Smalls's. No gross signs of erosion. There was just slight pinkness to the distal part of the esophagus. Cold biopsy is taken to evaluate for mild reflux. Otherwise, good hemostasis noted. The scope pulled back up to mid esophagus. Random cold biopsies taken to evaluate for eosinophilic esophagitis. Good hemostasis noted. The scope is withdrawn. There was no family available to discuss the findings with.
== END 2021-05-15 12:40 | disposition home or self-care (01) ==
LOC: SDC 09:15
PROVIDERS: ATTEND Surgery
DX: K29.00 Acute gastritis without bleeding (principal); K20.90 Esophagitis, unspecified without bleeding; K31.7 Polyp of stomach and duodenum
CPT/HCPCS: 88305; 88312; J2250; J2704